=== PATIENT | female | born 1950 | race Caucasian/White ===

== ENCOUNTER → 2018-09-29 | Outpatient (CLI) | payer OTHER ==
[~2018-09-29] MED LIST: ALBU3IS INH; ALBU90OI6 INH; ALPR1 PO; AMLO10 PO; AMOCLA875 PO; ASPI81CH PO; B-12250 MCG PO; DIVA125 PO; FISH1000 PO; FLUT44OIA INH; FURO20 PO; HYDACE10B PO; Hair, Skin & N1 EACH PO; IBUP800 PO; LOSA25 PO; Lasix20 MG PO; Lasix40 MG PO; OMEP20ER PO; Omeprazole20 M1 PO; POTA8 PO; Prednisone20 MG PO; TRAZ100 PO
== END ==
LOC: LAB SHORT 13:23 → LAB 13:23
DX: L97.309 Non-pressure chronic ulcer of unspecified ankle with unspecified severity (principal)
CPT/HCPCS: 87070; 87077; 87147; 87186; 87205

== ENCOUNTER 2018-10-06 11:38 | Day surgery (SDC) | payer OTHER | END 2018-10-06 22:50 | disposition home or self-care (01) | LOC: WOUND 11:38 | DX: E11.622 Type 2 diabetes mellitus with other skin ulcer (principal); L97.319 Non-pressure chronic ulcer of right ankle with unspecified severity; L97.329 Non-pressure chronic ulcer of left ankle with unspecified severity; E11.51 Type 2 diabetes mellitus with diabetic peripheral angiopathy without gangrene; F17.210 Nicotine dependence, cigarettes, uncomplicated; J44.9 Chronic obstructive pulmonary disease, unspecified; Z99.81 Dependence on supplemental oxygen; Z88.1 Allergy status to other antibiotic agents; Z88.8 Allergy status to other drugs, medicaments and biological substances | CPT/HCPCS: G0463 ==

== ENCOUNTER 2018-10-14 09:15 | Day surgery (SDC) | payer OTHER | END 2018-10-14 22:49 | disposition home or self-care (01) | LOC: WOUND 09:15 | DX: E11.622 Type 2 diabetes mellitus with other skin ulcer (principal); L97.812 Non-pressure chronic ulcer of other part of right lower leg with fat layer exposed; L97.822 Non-pressure chronic ulcer of other part of left lower leg with fat layer exposed; L97.319 Non-pressure chronic ulcer of right ankle with unspecified severity; L97.329 Non-pressure chronic ulcer of left ankle with unspecified severity; E11.51 Type 2 diabetes mellitus with diabetic peripheral angiopathy without gangrene; J44.9 Chronic obstructive pulmonary disease, unspecified; I89.0 Lymphedema, not elsewhere classified; I11.0 Hypertensive heart disease with heart failure; I50.9 Heart failure, unspecified; I25.2 Old myocardial infarction; E11.40 Type 2 diabetes mellitus with diabetic neuropathy, unspecified; Z72.0 Tobacco use ==

== ENCOUNTER 2018-10-21 08:50 | Day surgery (SDC) | payer OTHER | END 2018-10-21 23:01 | disposition home or self-care (01) | LOC: WOUND 08:50 | DX: E11.622 Type 2 diabetes mellitus with other skin ulcer (principal); L97.812 Non-pressure chronic ulcer of other part of right lower leg with fat layer exposed; L97.822 Non-pressure chronic ulcer of other part of left lower leg with fat layer exposed; L97.319 Non-pressure chronic ulcer of right ankle with unspecified severity; L97.329 Non-pressure chronic ulcer of left ankle with unspecified severity; E11.51 Type 2 diabetes mellitus with diabetic peripheral angiopathy without gangrene; I11.0 Hypertensive heart disease with heart failure; I50.9 Heart failure, unspecified; I25.2 Old myocardial infarction; J44.9 Chronic obstructive pulmonary disease, unspecified; D64.9 Anemia, unspecified; F17.200 Nicotine dependence, unspecified, uncomplicated; Z99.81 Dependence on supplemental oxygen ==

== ENCOUNTER 2018-10-28 00:24 | Day surgery (SDC) | payer OTHER | END 2018-10-28 22:46 | disposition home or self-care (01) | LOC: WOUND 00:24 | DX: E11.622 Type 2 diabetes mellitus with other skin ulcer (principal); L97.811 Non-pressure chronic ulcer of other part of right lower leg limited to breakdown of skin; L97.821 Non-pressure chronic ulcer of other part of left lower leg limited to breakdown of skin; E11.51 Type 2 diabetes mellitus with diabetic peripheral angiopathy without gangrene; E11.40 Type 2 diabetes mellitus with diabetic neuropathy, unspecified; J44.9 Chronic obstructive pulmonary disease, unspecified; I50.9 Heart failure, unspecified; I25.2 Old myocardial infarction; D64.9 Anemia, unspecified; Z72.0 Tobacco use ==

== ENCOUNTER 2018-11-04 08:58 | Day surgery (SDC) | payer OTHER | END 2018-11-04 22:56 | disposition home or self-care (01) | LOC: WOUND 08:58 | DX: E11.622 Type 2 diabetes mellitus with other skin ulcer (principal); L97.812 Non-pressure chronic ulcer of other part of right lower leg with fat layer exposed; L97.822 Non-pressure chronic ulcer of other part of left lower leg with fat layer exposed; L97.319 Non-pressure chronic ulcer of right ankle with unspecified severity; L97.329 Non-pressure chronic ulcer of left ankle with unspecified severity; E11.51 Type 2 diabetes mellitus with diabetic peripheral angiopathy without gangrene; I73.9 Peripheral vascular disease, unspecified; E11.40 Type 2 diabetes mellitus with diabetic neuropathy, unspecified; I11.0 Hypertensive heart disease with heart failure; I50.9 Heart failure, unspecified; I25.2 Old myocardial infarction; J44.9 Chronic obstructive pulmonary disease, unspecified; D64.9 Anemia, unspecified; F17.200 Nicotine dependence, unspecified, uncomplicated; Z99.81 Dependence on supplemental oxygen | CPT/HCPCS: G0463 ==

== ENCOUNTER 2018-11-11 09:15 | Day surgery (SDC) | payer OTHER | END 2018-11-11 23:09 | disposition home or self-care (01) | LOC: WOUND 09:15 | DX: E11.622 Type 2 diabetes mellitus with other skin ulcer (principal); L97.811 Non-pressure chronic ulcer of other part of right lower leg limited to breakdown of skin; L97.822 Non-pressure chronic ulcer of other part of left lower leg with fat layer exposed; L97.319 Non-pressure chronic ulcer of right ankle with unspecified severity; L97.329 Non-pressure chronic ulcer of left ankle with unspecified severity; E11.51 Type 2 diabetes mellitus with diabetic peripheral angiopathy without gangrene; I73.9 Peripheral vascular disease, unspecified; E11.40 Type 2 diabetes mellitus with diabetic neuropathy, unspecified; I11.0 Hypertensive heart disease with heart failure; I50.9 Heart failure, unspecified; J44.9 Chronic obstructive pulmonary disease, unspecified; F17.200 Nicotine dependence, unspecified, uncomplicated; Z99.81 Dependence on supplemental oxygen ==

== ENCOUNTER 2018-11-18 00:18 | Day surgery (SDC) | payer OTHER | END 2018-11-18 23:00 | disposition home or self-care (01) | LOC: WOUND 00:18 | DX: E11.622 Type 2 diabetes mellitus with other skin ulcer (principal); L97.812 Non-pressure chronic ulcer of other part of right lower leg with fat layer exposed; L97.822 Non-pressure chronic ulcer of other part of left lower leg with fat layer exposed; E11.51 Type 2 diabetes mellitus with diabetic peripheral angiopathy without gangrene; I73.9 Peripheral vascular disease, unspecified; E11.40 Type 2 diabetes mellitus with diabetic neuropathy, unspecified; I11.0 Hypertensive heart disease with heart failure; I50.9 Heart failure, unspecified; I25.2 Old myocardial infarction; J44.9 Chronic obstructive pulmonary disease, unspecified; D64.9 Anemia, unspecified; F17.200 Nicotine dependence, unspecified, uncomplicated; Z99.81 Dependence on supplemental oxygen | CPT/HCPCS: G0463 ==

== ENCOUNTER 2018-11-25 08:40 | Day surgery (SDC) | payer OTHER | END 2018-11-25 23:25 | disposition home or self-care (01) | LOC: WOUND 08:40 | DX: E11.622 Type 2 diabetes mellitus with other skin ulcer (principal); L97.812 Non-pressure chronic ulcer of other part of right lower leg with fat layer exposed; L97.822 Non-pressure chronic ulcer of other part of left lower leg with fat layer exposed; L97.329 Non-pressure chronic ulcer of left ankle with unspecified severity; L97.319 Non-pressure chronic ulcer of right ankle with unspecified severity; E11.51 Type 2 diabetes mellitus with diabetic peripheral angiopathy without gangrene; I73.9 Peripheral vascular disease, unspecified; E11.40 Type 2 diabetes mellitus with diabetic neuropathy, unspecified; I11.0 Hypertensive heart disease with heart failure; I50.9 Heart failure, unspecified; I25.2 Old myocardial infarction; J44.9 Chronic obstructive pulmonary disease, unspecified; D64.9 Anemia, unspecified; F17.200 Nicotine dependence, unspecified, uncomplicated; Z99.81 Dependence on supplemental oxygen | CPT/HCPCS: G0463 ==

== ENCOUNTER 2018-12-02 09:15 | Day surgery (SDC) | payer OTHER | END 2018-12-02 22:48 | disposition home or self-care (01) | LOC: WOUND 09:15 | DX: E11.622 Type 2 diabetes mellitus with other skin ulcer (principal); L97.822 Non-pressure chronic ulcer of other part of left lower leg with fat layer exposed; L97.812 Non-pressure chronic ulcer of other part of right lower leg with fat layer exposed; E11.51 Type 2 diabetes mellitus with diabetic peripheral angiopathy without gangrene; I73.9 Peripheral vascular disease, unspecified; I87.2 Venous insufficiency (chronic) (peripheral); I10 Essential (primary) hypertension; J44.9 Chronic obstructive pulmonary disease, unspecified; F17.200 Nicotine dependence, unspecified, uncomplicated; Z99.81 Dependence on supplemental oxygen | CPT/HCPCS: G0463 ==

== ENCOUNTER 2018-12-09 08:43 | Day surgery (SDC) | payer OTHER | END 2018-12-09 23:09 | disposition home or self-care (01) | LOC: WOUND 08:43 | DX: E11.622 Type 2 diabetes mellitus with other skin ulcer (principal); L97.822 Non-pressure chronic ulcer of other part of left lower leg with fat layer exposed; L97.819 Non-pressure chronic ulcer of other part of right lower leg with unspecified severity; L97.319 Non-pressure chronic ulcer of right ankle with unspecified severity; L97.329 Non-pressure chronic ulcer of left ankle with unspecified severity; E11.51 Type 2 diabetes mellitus with diabetic peripheral angiopathy without gangrene; I73.9 Peripheral vascular disease, unspecified; I87.2 Venous insufficiency (chronic) (peripheral); E11.40 Type 2 diabetes mellitus with diabetic neuropathy, unspecified; I11.0 Hypertensive heart disease with heart failure; I50.9 Heart failure, unspecified; J44.9 Chronic obstructive pulmonary disease, unspecified; I25.2 Old myocardial infarction; D64.9 Anemia, unspecified; F17.200 Nicotine dependence, unspecified, uncomplicated; Z99.81 Dependence on supplemental oxygen | CPT/HCPCS: G0463 ==

== ENCOUNTER 2018-12-16 08:43 | Day surgery (SDC) | payer OTHER | END 2018-12-16 23:42 | disposition home or self-care (01) | LOC: WOUND 08:43 | DX: E11.622 Type 2 diabetes mellitus with other skin ulcer (principal); L97.322 Non-pressure chronic ulcer of left ankle with fat layer exposed; L97.319 Non-pressure chronic ulcer of right ankle with unspecified severity; E11.51 Type 2 diabetes mellitus with diabetic peripheral angiopathy without gangrene; I73.9 Peripheral vascular disease, unspecified; E11.40 Type 2 diabetes mellitus with diabetic neuropathy, unspecified; I11.0 Hypertensive heart disease with heart failure; I50.9 Heart failure, unspecified; I25.2 Old myocardial infarction; J44.9 Chronic obstructive pulmonary disease, unspecified; F17.200 Nicotine dependence, unspecified, uncomplicated | CPT/HCPCS: G0463 ==

== ENCOUNTER 2018-12-30 07:29 | Day surgery (SDC) | payer OTHER | END 2018-12-30 23:09 | disposition home or self-care (01) | LOC: WOUND 07:29 | DX: E11.622 Type 2 diabetes mellitus with other skin ulcer (principal); E11.51 Type 2 diabetes mellitus with diabetic peripheral angiopathy without gangrene; E11.40 Type 2 diabetes mellitus with diabetic neuropathy, unspecified; L97.319 Non-pressure chronic ulcer of right ankle with unspecified severity; L97.329 Non-pressure chronic ulcer of left ankle with unspecified severity; I73.9 Peripheral vascular disease, unspecified; I87.2 Venous insufficiency (chronic) (peripheral); D64.9 Anemia, unspecified; J44.9 Chronic obstructive pulmonary disease, unspecified; M32.9 Systemic lupus erythematosus, unspecified; F41.9 Anxiety disorder, unspecified; I25.2 Old myocardial infarction; I11.0 Hypertensive heart disease with heart failure; I50.9 Heart failure, unspecified; F17.200 Nicotine dependence, unspecified, uncomplicated | CPT/HCPCS: G0463 ==

== ENCOUNTER 2019-01-06 00:14 | Day surgery (SDC) | payer OTHER | END 2019-01-06 22:47 | disposition home or self-care (01) | LOC: WOUND 00:14 | DX: L97.319 Non-pressure chronic ulcer of right ankle with unspecified severity (principal); L97.329 Non-pressure chronic ulcer of left ankle with unspecified severity; I73.9 Peripheral vascular disease, unspecified; I87.2 Venous insufficiency (chronic) (peripheral); Z72.0 Tobacco use | CPT/HCPCS: G0463 ==

== ENCOUNTER 2019-01-13 00:14 | Day surgery (SDC) | payer OTHER | END 2019-01-13 22:59 | disposition home or self-care (01) | LOC: WOUND 00:14 | DX: E11.622 Type 2 diabetes mellitus with other skin ulcer (principal); L97.821 Non-pressure chronic ulcer of other part of left lower leg limited to breakdown of skin; L97.319 Non-pressure chronic ulcer of right ankle with unspecified severity; L97.329 Non-pressure chronic ulcer of left ankle with unspecified severity; E11.51 Type 2 diabetes mellitus with diabetic peripheral angiopathy without gangrene; I73.9 Peripheral vascular disease, unspecified; I87.2 Venous insufficiency (chronic) (peripheral); I10 Essential (primary) hypertension; J44.9 Chronic obstructive pulmonary disease, unspecified; Z72.0 Tobacco use; Z99.81 Dependence on supplemental oxygen ==

== ENCOUNTER 2020-11-23 10:12 | Emergency (ER) | payer OTHER ==
[~2020-11-23] VITALS: Ht 160 cm; Wt 68.0 kg
[2020-11-23] MEDS ORDERED: Mupirocin22 GM TOP (10:21)
== END 2020-11-23 11:15 | disposition home or self-care (01) ==
LOC: ER 10:12
DX: J44.9 Chronic obstructive pulmonary disease, unspecified (principal); I10 Essential (primary) hypertension; L03.116 Cellulitis of left lower limb; L03.115 Cellulitis of right lower limb; Z79.82 Long term (current) use of aspirin; Z79.899 Other long term (current) drug therapy; Z87.891 Personal history of nicotine dependence; Z88.5 Allergy status to narcotic agent; Z88.1 Allergy status to other antibiotic agents; Z88.8 Allergy status to other drugs, medicaments and biological substances
CPT/HCPCS: 99283

== ENCOUNTER 2020-11-29 11:46 | Inpatient (IN) | payer OTHER ==
[~2020-11-29] VITALS: Ht 162.6 cm; Wt 65.8 kg
[~2020-11-29 11:46] MED LIST changes: +Mupirocin22 GM TOP
[2020-11-29] MEDS ORDERED: POTA10T PO (12:11)
[2020-11-29] MEDS ORDERED: HYDR1TAB94 PO (12:12)
[2020-11-29] MEDS ORDERED: FURO20 PO (12:12)
[2020-11-29] MEDS ORDERED: OMEP20ER PO (12:12)
[2020-11-29] MEDS ORDERED: Aspir 8181 MG PO (12:13)
[2020-11-29 12:23] LABS: BASOPHILS ABSOLUTE AUTO 0.06 K/mm3 (0.00-0.23); BASOPHILS PERCENT AUTO 0 % (0-2); EOSINOPHILS ABSOLUTE AUTO 0.01 K/mm3 (0.00-0.68); EOSINOPHILS PERCENT AUTO 0 % (0-6); Hematocrit 42.7 % (33.0-51.0); Hemoglobin 12.7 g/dL (11.5-16.0); IMMATURE GRAN ABSOLUTE AUTO 0.31 K/mm3 (0.00-0.10); IMMATURE GRAN PERCENT AUTO 2 % (0-1); LYMPHOCYTES ABSOLUTE AUTO 1.39 K/mm3 (0.84-5.20); LYMPHOCYTES PERCENT AUTO 8 % (21-46); MONOCYTES ABSOLUTE AUTO 1.16 K/mm3 (0.16-1.47); MONOCYTES PERCENT AUTO 7 % (4-13); Mean Corpuscular HGB 27.7 pg (26.0-34.0); Mean Corpuscular HGB Conc 29.7 g/dL (31.5-36.5); Mean Corpuscular Volume 93 fL (80-100); Mean Platelet Volume 10.5 fL (9.1-12.4); NEUTROPHILS ABSOLUTE AUTO 13.62 K/mm3 (1.96-9.15); NEUTROPHILS PERCENT AUTO 82 % (41-73); NRBC ABSOLUTE 0.07 K/mm3 (0.00-0.02); NRBC Auto 0.4 /100 WBC (0.0-0.2); Platelet Count 355 K/mm3 (150-400); RDW Coefficient Variation 13.7 % (11.7-14.2); RDW Standard Deviation 46.5 fL (35.1-46.3); Red Blood Cell Count 4.58 M/mm3 (3.80-5.20); White Blood Cell Count 16.55 K/mm3 (4.00-11.30)
[2020-11-29 12:30] LABS: Calcium, Ionized (POC) 1.05 mmol/L (1.10-1.46); Chloride (POC) 87 mmol/L (98-108); Creatinine (POC) 1.7 mg/dL (0.6-1.0); Glucose (ISTAT POC) 104 mg/dL (70-99); Hemoglobin (POC) 15.3 g/dL (12.0-16.0); Potassium (POC) 4.3 mmol/L (3.5-5.5); Sodium (POC) 136 mmol/L (135-148); Total CO2 (POC) 46 mmol/L (21-32)
[2020-11-29 12:56] LABS: Albumin, Blood 2.5 g/dL (3.4-5.0); Albumin/Globulin Ratio 0.5 (0.8-1.8); Bilirubin, Total 0.4 mg/dL (0.1-1.0); Bun/Creatinine Ratio 45.7 (12.0-20.0); Calcium, Blood 8.5 mg/dL (8.5-10.1); Creatinine, Blood 1.29 mg/dL (0.40-1.00); Globulin, Blood 5.3 g/dL (2.2-4.0); Magnesium, Blood 1.7 mg/dL (1.6-2.4); Potassium, Blood 4.3 mmol/L (3.5-5.5); Total Protein, Blood 7.8 g/dL (6.4-8.2)
[2020-11-29 13:03] LABS: Troponin I 2.4 ng/mL (0.000-0.040)
[2020-11-29 14:13] LABS: PCO2 Arterial 102 mmHg (35-45); PO2 Arterial 83.4 mmHg (80-100); pH Blood Arterial 7.25 (7.35-7.45)
[2020-11-29 14:22] LABS: International Normalized Ratio 1.15; Prothrombin Time Results 12.3 Sec (9.7-11.5)
[2020-11-29 14:40] LABS: Creatine Kinase MB 6.2 ng/mL (0.0-3.6); Creatine Kinase MB Index 2.2 (0.0-4.0)
--- NOTE | 2020-11-29 19:00 | NUR ---
[facility] DOWNTIME-SEE PAPER CHARTING
[2020-11-29 19:20] LABS: SARS-Cov-2 (COVID-19) PCR, MMC NEGATIVE (NEGATIVE)
[2020-11-29 19:32] LABS: PCO2 Arterial 87.4 mmHg (35-45); pH Blood Arterial 7.32 (7.35-7.45)
[2020-11-29 19:42] LABS: Source, Urine Clean Catch
[2020-11-29 19:45] LABS: BASOPHILS ABSOLUTE AUTO 0.03 K/mm3 (0.00-0.23); BASOPHILS PERCENT AUTO 0 % (0-2); EOSINOPHILS PERCENT AUTO 0 % (0-6); Hematocrit 38.9 % (33.0-51.0); Hemoglobin 11.8 g/dL (11.5-16.0); IMMATURE GRAN ABSOLUTE AUTO 0.24 K/mm3 (0.00-0.10); IMMATURE GRAN PERCENT AUTO 2 % (0-1); LYMPHOCYTES ABSOLUTE AUTO 0.53 K/mm3 (0.84-5.20); LYMPHOCYTES PERCENT AUTO 4 % (21-46); MONOCYTES ABSOLUTE AUTO 0.15 K/mm3 (0.16-1.47); MONOCYTES PERCENT AUTO 1 % (4-13); Mean Corpuscular HGB Conc 30.3 g/dL (31.5-36.5); Mean Corpuscular Volume 92 fL (80-100); Mean Platelet Volume 10.2 fL (9.1-12.4); NEUTROPHILS PERCENT AUTO 93 % (41-73); NRBC ABSOLUTE 0.04 K/mm3 (0.00-0.02); NRBC Auto 0.3 /100 WBC (0.0-0.2); Platelet Count 317 K/mm3 (150-400); RDW Coefficient Variation 13.5 % (11.7-14.2); RDW Standard Deviation 45.6 fL (35.1-46.3); Red Blood Cell Count 4.22 M/mm3 (3.80-5.20); White Blood Cell Count 13.75 K/mm3 (4.00-11.30)
[2020-11-29 20:04] LABS: Albumin, Blood 2.3 g/dL (3.4-5.0); Albumin/Globulin Ratio 0.5 (0.8-1.8); Bilirubin, Total 0.3 mg/dL (0.1-1.0); Bun/Creatinine Ratio 47.2 (12.0-20.0); Calcium, Blood 8.3 mg/dL (8.5-10.1); Creatinine, Blood 1.08 mg/dL (0.40-1.00); Globulin, Blood 4.6 g/dL (2.2-4.0); Magnesium, Blood 2.2 mg/dL (1.6-2.4); Potassium, Blood 3.5 mmol/L (3.5-5.5); Total Protein, Blood 6.9 g/dL (6.4-8.2)
[2020-11-29 20:23] LABS: Appearance, Urine Clear (Clear); Bilirubin, Urine Neg (Neg); Blood, Urine Neg (Neg); Color, Urine Yellow (P-Yellow); Glucose Qualitative, Urine Neg (Neg); Ketones, Urine Neg (Neg); Leukocyte Esterase, Urine 1+ (Neg); Nitrite, Urine Neg (Neg); Protein, Urine Neg (Neg); Urobilinogen, Urine NORM (Normal)
[2020-11-29 20:25] LABS: Bacteria Few /hpf; Red Blood Cells, Urine Not Seen /hpf (0-2); Squamous Epithelial Cells Rare /hpf (Few)
--- NOTE | 2020-11-29 21:15 | NUR ---
CARDIOLOGY NOTIFIED AT THIS TIME OF PT'S INCREASE IN VTACH & ECTOPIC EPISODES. LIDOCAINE 60 MG IV BOLUS TO BE GIVEN NOW FOLLOWED BY 1 MG LIDOCAINE GTT WITH A 1-4 MG TITRATE. ORDERS DISCUSSED WITH SCREW CUTTER, LIDOCAINE GTT VERIFIED AT THE BEDSIDE WITH 2 RN VERIFICATION.
--- NOTE | 2020-11-29 22:30 | NUR ---
AT THE BEDSIDE TO ASSESS PT. SHE IS UNABLE TO ANSWER HIS QUESTIONS, CODE STATUS QUESTIONED. PREVIOUS PHONE ATTEMPTS HAD BEEN MADE TO FAMILY WITH NO SUCCESS, PT'S SISTER DID HOWEVER CALL WHILE HE WAS IN THE ROOM, PT'S FAMILY WAS UPDATED ON HER CONDIION. FAMILY WILL DISCUSS CODE STATUS.
--- NOTE | 2020-11-29 23:00 | NUR ---
PT WOKE UP WHILE ATTEMPTING TO START AN IV. SHE WAS A&O X4. PT WAS ASKED ABOUT HER CODE STATUS WHAT HER WISHES WERE. THE PT STATED THAT SHE HAD AN ADVANCED DIRECTIVE ON FILE WITH HOSPITAL BUT IT HAD BEEN A FEW YEARS SINCE DOING THE PAPERWORK, SHE ALSO STATED SHE WANTS TO REMAIN A FULL CODE BECAUSE SHE HAS A LOT OF PEOPLE THAT DEPEND ON HER, SHE HAS A DISABLED DAUGHTER THAT LIVES WITH HER. SHE WAS ASKE ABOUT GOING TO THE FRONT OFFICE AGENT FOR INTERVENTION, SHE WAS UNSURE, SHE STATED SHE HAD ALMOST MADE HER DAUGHTER WEST [place] THE PAST BUT NEVER COMPLETED THE PROCESS. SHE FEELS HER SISTER SAUL & HER FIANCE ANUP ARE TRYING TO TAKE HER VAN AWAY OR GAIN HER POSESSIONS'. THE PT'S DAUGHTER (WEST) & ADILIA STATED THAT THE PT HAD RECENTLY HAD A MAN FROM [place] LIVING WITH HER THAT SUPPOSED TO HELPING WITH CARE WHEN HOME HEALTH WAS NOT AROUND. HE HAS SINCE BEEN REMOVED FROM THE HOME. PT STATED THAT SHE WANTS HER DAUGHTER WEST TO BE IN CHARGE OF HER MEDICAL DECISIONS IF SHE SHOULD DECLINE. HER SISTER STATED THAT THE
--- NOTE | 2020-11-30 | NUR ---
ORAL CARE PROVIDED WHILE PT WAS AWAKE AND ALERT, SHE TOLERATED BEING OFF THE BIPAP FOR APPROX 3-4 MINUTES. SHE WAS ABLE TO USE THE MOUTH SWABS TO BRUSHE HER TEETH, RINSE & SPIT. SPO2 DECREASED TO 88%, BIPAP WAS PLACED BACK ON THE PT. SHE STATED UNDERSTANDING FOR NPO STATUS. CALL LIGHT AND ROOM ORIENTATION PROVIDED AT THIS TIME.
[2020-11-30 03:28] LABS: BASOPHILS ABSOLUTE AUTO 0.01 K/mm3 (0.00-0.23); BASOPHILS PERCENT AUTO 0 % (0-2); EOSINOPHILS PERCENT AUTO 0 % (0-6); Hematocrit 37.2 % (33.0-51.0); Hemoglobin 11.5 g/dL (11.5-16.0); IMMATURE GRAN ABSOLUTE AUTO 0.12 K/mm3 (0.00-0.10); IMMATURE GRAN PERCENT AUTO 1 % (0-1); LYMPHOCYTES ABSOLUTE AUTO 0.41 K/mm3 (0.84-5.20); LYMPHOCYTES PERCENT AUTO 5 % (21-46); MONOCYTES ABSOLUTE AUTO 0.07 K/mm3 (0.16-1.47); MONOCYTES PERCENT AUTO 1 % (4-13); Mean Corpuscular HGB 28.6 pg (26.0-34.0); Mean Corpuscular HGB Conc 30.9 g/dL (31.5-36.5); Mean Corpuscular Volume 93 fL (80-100); Mean Platelet Volume 10.5 fL (9.1-12.4); NEUTROPHILS ABSOLUTE AUTO 7.89 K/mm3 (1.96-9.15); NEUTROPHILS PERCENT AUTO 93 % (41-73); NRBC ABSOLUTE 0.04 K/mm3 (0.00-0.02); NRBC Auto 0.5 /100 WBC (0.0-0.2); Platelet Count 306 K/mm3 (150-400); RDW Coefficient Variation 13.4 % (11.7-14.2); RDW Standard Deviation 45.5 fL (35.1-46.3); Red Blood Cell Count 4.02 M/mm3 (3.80-5.20)
--- NOTE | 2020-11-30 04:07 | NUR ---
PT IS AWAKE, ALERT & ORIENTED X3. SHE WAS ABLE TO ASSIST WITH HER OWN ORAL CARE. RADIOLOGY IN FOR CHEST XRAY AT THIS TIME. PT STATES "I HAVE NOT HAD ANYTHING TO EAT IN A LONG TIME". PT WAS EDUCATED ON NPO STATUS. CALL LIGHT IN REACH
[2020-11-30 04:19] LABS: Albumin, Blood 2.4 g/dL (3.4-5.0); Albumin/Globulin Ratio 0.5 (0.8-1.8); Bilirubin, Total 0.4 mg/dL (0.1-1.0); Bun/Creatinine Ratio 48.4 (12.0-20.0); Calcium, Blood 8.2 mg/dL (8.5-10.1); Creatinine, Blood 0.97 mg/dL (0.40-1.00); Globulin, Blood 4.7 g/dL (2.2-4.0); Magnesium, Blood 2.1 mg/dL (1.6-2.4); Potassium, Blood 3.6 mmol/L (3.5-5.5); Total Protein, Blood 7.1 g/dL (6.4-8.2)
[2020-11-30 04:38] LABS: Troponin I 1.09 ng/mL (0.000-0.040)
--- NOTE | 2020-11-30 06:09 | NUR ---
SUMMARY PT HAS WOKE UP A FEW TIMES THROUGH THE NIGHT. SHE IS ORIENTED X3. SHE WAS ABLE TO VERBALIZE NEEDS, ASSIST WITH ORAL CARE, AND REMEMBER MY NAME. PT WAS PLACED ON 10 L O2 VIA NC DURING ORAL CARE, SPO2 REMAINED >94%, UNLABORED. PT WAS ASKING FOR FOOD & WATER, SHE WAS EDUCATED ABOUT HER REASON FOR ADMISSION & NPO STATUS. LIDOCAINE GTT INFUSING @ 1 MG/MIN, HEPARIN GTT INFUSING @ 15 U/KG/HR. BIPAP 14/6, 10% FIO2, RATE-16. Q2 TURNS PROVIDED, CALL LIGHT IN REACH, WCTM & REPORT TO DAY RN.
--- NOTE | 2020-11-30 08:30 | NUR ---
ASSESSMENT- PT AWAKE, ALERT, COOPERATIVE. C/O BACK SORENESS, LEG STIFFNESS, DENIES ANY CP OR SOB. REPOSITIONED WITH IMPROVEMENT. CONFUSED REGARDING DATE, PLACE. EXPLAINED PLAN OF CARE. ABLE TO ANSWER SOME QUESTIONS. PHYSICIANS HERE-UPDATED. LUNGS WITH CRACKLES BIBASILAR. ON BIPAP-CHANGED TO CANNULA WITH STABLE SATURATIONS, DENIES SOB, RESPIRATIONS UNLABORED. REQUESTING FOOD-DR. GARCIA HERE-UPDATED. ABLE TO TAKE JUICE, APPLESAUCE WITHOUT PROBLEMS. NO N/V. NO CHEST PAIN. UO GOOD VIA SAMANO. SKIN POOR CONDITION, REDDENED PERIAREA. THICKENED ALLIGATOR SKIN BILATERAL SHINS WITH SORES. PEDAL PULSES PRESENT. ABLE TO USE CALL LIGHT.
--- NOTE | 2020-11-30 09:49 | NUR ---
DR. GOMEZ HERE-UDPATED. SPOKE WITH PT REGARDING POSSIBLE HEART CATH TODAY. PT STATES HAS TO THINK ABOUT IT, DOES NOT WANT IT TODAY. EXPLAINED PLAN OF CARE, STATES WILL ALSO TALK WITH HER SISTER
--- NOTE | 2020-11-30 10:45 | NUR ---
PT EATING BREAKFAST. C/O LOWER BACK PAIN, REFUSED TYLENOL, STATES TAKES NORCO AT HOME,UPDATE TO PHYSICIAN AND NORCO GIVEN. VSS. STILL STATES WANTS TO WAIT TO THINK ABOUT HEART PROCEDURE
--- NOTE | 2020-11-30 15:26 | NUR ---
DISCUSSED ANGIOGRAM WITH PT, STATES DOES NOT WANT TO HAVE DONE RIGHT NOW. ALERT, ORIENTED, COOPERATIVE, QUESTIONS ANSWERED. HUNGRY-APPETITE GOOD. SINUS WITH FEW PACS, LIDOCAIN D/C, PO ANTIARRHYTHMIC GIVEN.
--- NOTE | 2020-11-30 18:14 | NUR ---
Spiritual care note: Mrs. Toure was pleasant and open to prayer. She appears quite frail and admits she is needing help managing her affairs. For example, she is worried about eviction because she has not been able to make it to the bank in 2 months and has not paid her rent. She has a sister and a daughter, "But I don't trust them." She may benefit from some help managing portions of her life. Regardless, she is hopeful for recovery and appreciaitve of spiritual support. I will remain avaialble.
--- NOTE | 2020-11-30 18:24 | NUR ---
PT STATES DOES NOT WANT CARDIAC CATH NOW. HAD TALKED WITH NAVIGATION OFFICER AND WITH SISTER. NOTIFIED DR. EVERETT-PLAVIX ORDERS TAKEN. PT C/O LOWER BACK PAIN AND GENERALIZED ACHES-RX GIVEN PER REQUEST. WAS SITTING UP EATING DINNER-CHOKING EPISODE, CLEARED QUICKLY BUT DID HAVE SMALL AMOUNT EMESIS. LUNGS CLEAR, NO CHANGE IN SATURATIONS. WILL MONITOR. GOOD APPETITE. HEPARIN GTT INFUSING. UO GOOD VIA SAMANO. DRSGS TO BILATERAL SHINS.
--- NOTE | 2020-11-30 18:59 | NUR ---
VISITING WITH SISTER AT BEDSIDE. STATES PAIN DECREASED TO TOLERABLE LEVEL 4. NO S/S ASPIRATION
--- NOTE | 2020-11-30 19:45 | NUR ---
PT SITTING UP IN BED IN HIGH SEMI FOWLERS POSITION. PT DECLINES REPOSITIONING, SHE REPORTS SHE WOULD LIKE TO WATCH TV. CALL LIGHT WITHIN REACH. PT DRINKING COFFEE WITHOUT COMPLICATIONS, AND PT IS REQUESTING ICE CREAM. PT DENIES ANY COMPLAINTS OF HEADACHE, CHEST PAIN, SOB, NAUSEA, OR NUMBNESS AND TINGLING. PT DENIES ANY PAIN, BUT REPORTS SHE DOES EXPERIENCE PAIN IN HER BACK THAT SHE TAKES PAIN MEDICATION FOR. LEGS ELEVATED ON A PILLOW. SAMANO IS DRAINING CLEAR YELLOW URINE. FLUIDS AT BEDSIDE. BED IN LOW POSITION.
--- NOTE | 2020-12-01 01:18 | NUR ---
PLACED PT ON BIPAP 40% - PT UNABLE TO MAINTAIN HER SATS ABOVE 88-89% ON 3.5 L OXYGEN. PT DENIES SOB. LS ARE CLEAR BUT DECREASED THROUGHOUT, NO CHANGE FROM BEGINNING OF SHIFT. CALL LIGHT WITHIN REACH. BED IN LOW POSITION. NOTIFIED FANNY PAT.
--- NOTE | 2020-12-01 02:07 | NUR ---
PT PLACED BACK ON 3.5 L OXYGEN VIA NC - SATS MAINTAINING 92-93%. CALL LIGHT WITHIN REACH. PT TOLERATING PO FLUIDS WITHOUT DIFFICULTY.
--- NOTE | 2020-12-01 05:25 | NUR ---
SHIFT SUMMARY - NO ACUTE CHANGES THROUGHOUT THIS SHIFT. PT PLACED ON BIPAP FOR APPX 15 MINUTES X1 DURING THE NIGHT, FOR LOW OXYGEN SATS 88-89% (SEE PREVIOUS NOTE). PT TOLERATED PO FLUIDS AND SNACKS WITHOUT COMPLICATIONS TONIGHT. PT MEDICATED X1 FOR BACK PAIN WITH GOOD RELIEF. PT HASN'T SLEPT THROUGHOUT MOST OF THE NIGHT - PT FINALLY FELL ASLEEP APPX 20 MINUTES AGO. RESPIRATIONS EVEN AND UNLABORED. PT CURRENTLY ON 3L OXYGEN - SATS WNL. PT HAS BEEN ALERT AND ORIENTED X3 THROUGHOUT THE NIGHT, OCCASIONALLY PT HAS MADE AN ODD STATEMENT THINKING HER R SL IV WAS BLEEDING BUT IT WASN'T. CALL LIGHT WITHIN REACH. FLUIDS AT BEDSIDE. BED IN LOW POSITION.
--- NOTE | 2020-12-01 06:17 | NUR ---
SPOKE TO PT REGARDING REQUEST FOR ASSISTANCE FROM EASEMENT WORKER - VOCERA MESSAGE LEFT WITH SAL ERVIN, IT APPEARS SHE HAS BEEN FOLLOWING HER HERE IN THE HOSPITAL. I WILL ALSO PASS THIS ALONG TO RN, DAY SHIFT ICU.
--- NOTE | 2020-12-01 06:58 | NUR ---
HEPARIN DRIP OFF PER ORDER. PT IS CURRENTLY SLEEPING. CALL LIGHT WITHIN REACH. BED IN LOW POSITION.
[2020-12-01 07:50] LABS: Base Excess Venous 25.8 mmol/L; Bicarbonate Venous 47.7 mmol/L (24.0-30.0); PCO2 Venous 55.9 mmHg (38-42); PO2 Venous 132 mmHg (38-42)
[2020-12-01 07:51] LABS: pH Blood Venous 7.54 (7.34-7.37)
[2020-12-01 08:39] LABS: Blood Urea Nitrogen 32 mg/dL (8-24); Calcium, Blood 7.7 mg/dL (8.5-10.1); Chloride, Blood 88 mmol/L (98-108); Creatinine, Blood 0.84 mg/dL (0.40-1.00); Glomerular Filtration Rate >60 (60-); Glucose, Blood 167 mg/dL (70-99); Potassium, Blood 3.3 mmol/L (3.5-5.5); Sodium, Blood 135 mmol/L (136-145)
[2020-12-01 08:48] LABS: Anion Gap Unable to Calculate mmol/L (6-16)
[2020-12-01 08:53] LABS: CO2, Blood >45 mmol/L (21-32)
--- NOTE | 2020-12-01 16:36 | NUR ---
SHIFT NOTE PT HAD A BRIEF EPISODE OF HYPOTENSION THIS AFTERNOON WHICH WAS BEGAN TO RESOLVE WITHOUT INTERVENTION, 500ML LR BOLUS WAS ADMINISTERED FOR HYPOTENSION AND PRESSURES HAVE REMAINED >95 SINCE BOLUS. PT HAD DENIED ANY PAIN OR DISTRESS DURING THE HYPOTENSIVE MOMENT, AN EKG WAS PERFORMED, TROPONIN WAS OBTAINED, AND CHEMBG WAS PERFORMED. SPEECH THERAPY EVALUATED PT THIS AFTERNOON, DIET WAS CHANGED TO A CARDIAC PUREE DIET, NECTAR THICK LIQUIDS WITHOUT STRAWS. PT HAS REFUSED ANGIO, SHE ALSO REFUSED LOVENOX THIS EVENING. PT IS A/O X3.
--- NOTE | 2020-12-01 18:32 | NUR ---
PT HAS BEEN MADE PCU STATUS. PT REFUSING PO FLUIDS BECUASE SHE DOES NOT CARE FOR THICKENED FLUIDS, PT WAS PROVIDED WITH ENSURE COMPLETE AND V-8 JUICE BUT STS SHE HAS NOT HAD ANY FLUIDS THIS SHIFT. PT ALSO STS THAT SHE DID NOT EAT HER DINNER SHE DID NOT CARE FOR PUREE DIET, BUT PT DID MANAGE TO EAT 75% OF HER PUREE DINNER TRAY. PT DEMANDS TO SPEAK WITH THE DR TO REPORT SPEECH THERAPY FOR PLACING HER ON THICKENED FLUIDS AND PUREE DIET. PT EDUCATED THAT SHE WAS PALCED ON PUREE DIET AND THICKENED FLUIDS SHE WAS CHOKING ON BREAKFAST TRAY, AND HAD GURGLING SPEECH WHEN SPEECH THERAPY CONSULTED WITH HER, PT REFUSED EDUCATION DEMANDS TO SPEAK WITH DR ABOUT HER DIET, DR VAZQUEZ WAS MADE AWARE OF COMPLAINT
--- NOTE | 2020-12-02 06:14 | NUR ---
pt irritated and demanding because of diet order of pureed and thickened liquids. Teaching and reinforcement provided and pt became more aggreeable. frequent snacks provided to pt. complete bed bath given incontinent of stool. good paola care provided. lotion applied to lower extremities. vss. swallowing pills in pudding.
[2020-12-02 07:32] LABS: Alanine Aminotransfer (ALT/SGP 217 U/L (12-78); Albumin, Blood 2.4 g/dL (3.4-5.0); Albumin/Globulin Ratio 0.6 (0.8-1.8); Alk Phos 90 U/L (50-136); Aspartate Aminotrans (AST/SGOT 45 U/L (12-37); Bilirubin, Total 0.2 mg/dL (0.1-1.0); Blood Urea Nitrogen 25 mg/dL (8-24); Bun/Creatinine Ratio 33.9 (12.0-20.0); Calcium, Blood 8.2 mg/dL (8.5-10.1); Chloride, Blood 90 mmol/L (98-108); Creatinine, Blood 0.74 mg/dL (0.40-1.00); Globulin, Blood 4.2 g/dL (2.2-4.0); Glomerular Filtration Rate >60 (60-); Glucose, Blood 199 mg/dL (70-99); Potassium, Blood 4.4 mmol/L (3.5-5.5); Sodium, Blood 134 mmol/L (136-145); Total Protein, Blood 6.6 g/dL (6.4-8.2)
[2020-12-02 07:36] LABS: Anion Gap Unable to Calculate mmol/L (6-16)
[2020-12-02 07:38] LABS: CO2, Blood >45 mmol/L (21-32)
[2020-12-02 08:28] LABS: Base Excess Venous 25.1 mmol/L; Bicarbonate Venous 45.3 mmol/L (24.0-30.0); PCO2 Venous 78.6 mmHg (38-42); PO2 Venous 43.3 mmHg (38-42); pH Blood Venous 7.41 (7.34-7.37)
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
--- NOTE | 2020-12-02 13:26 | NUR ---
1310 PT TRANFER FROM ICU. KARIN RN GAVE REPORT. PT IS ALERT AND ORIENTED. PT WAS ABLE TO TRANSFER WITH 2 ASSIST AND USE OF CANE FROM GURNEY TO BED. PT WAS PLACED IN BED AND COVERED, CALL LIGHT OFFERED. NO DISTRESS REPORTED AT THIS TIME.
--- NOTE | 2020-12-02 18:04 | NUR ---
PT TRANSFERRED FROM ICU. SHE IS ALERT AND ORIENTED, REFUSES TO USE CALL LIGHT WHEN SHE NEEDS TO HAVE BM EVEN AFTER NURSE AND CARTON GLUING MACHINE OPERATOR EDUCATED HER . SHE IS ABLE TO AMBULATE SHORT DISTANCE WITH CANE AND 2 ASSIST. PT CAN BE NONCOMPLIANT WITH MEDS AND CARES. CALL LIGHT WITHIN REACH. NO ACUTE CHANGES.
[2020-12-03 05:49] LABS: Blood Urea Nitrogen 27 mg/dL (8-24); Bun/Creatinine Ratio 40.4 (12.0-20.0); Calcium, Blood 8.3 mg/dL (8.5-10.1); Chloride, Blood 91 mmol/L (98-108); Creatinine, Blood 0.67 mg/dL (0.40-1.00); Glomerular Filtration Rate >60 (60-); Glucose, Blood 88 mg/dL (70-99); Potassium, Blood 4.4 mmol/L (3.5-5.5); Sodium, Blood 136 mmol/L (136-145)
--- NOTE | 2020-12-03 05:49 | NUR ---
SHIFT SUMMARY: AOX2, DOES NOT KNOW DATE, AND WAS HULLUCINATING LAST NIGHT. SHE WAS SEEING PEOPLE IN THE ROOM AND ASKED FOR US TO GET THE CAKE OUT OF THE FRIG ON THE OTHER SIDE OF THE ROOM. SHE HAS BEEN PLEASANT AND FOLLOWING DIRECTIONS. SHE DID REFUSE HER PM MEDS. MEDICATED FOR PAIN X1. CATHETER IS STILL PATENT AND DRAINING. TELE ON. ORDER FOR CBG BUT DOES NOT STATES WHEN. WILL HAVE DAYSHIFT FIND OUT IF MD WANTS THEM. VS DID SHOW VERY LOW BP ON THE LEFT SIDE BUT WHEN TAKEN ON THE RIGHT HER BP IS NORMAL. DENIED ANY SYMPTOMS THE ENTIRE SHIFT. SLEPT WELL T/O THE NIGHT. CALL LIGHT IS IN REACH, BED ALARM IS ON.
[2020-12-03 06:03] LABS: Anion Gap Unable to Calculate mmol/L (6-16)
[2020-12-03 06:04] LABS: CO2, Blood >45 mmol/L (21-32)
[2020-12-03 08:28] LABS: Base Excess Venous 26.1 mmol/L; Bicarbonate Venous 46.6 mmol/L (24.0-30.0); PCO2 Venous 76.6 mmHg (38-42); PO2 Venous 90.5 mmHg (38-42); pH Blood Venous 7.43 (7.34-7.37)
--- NOTE | 2020-12-03 17:12 | NUR ---
SHIFT SUMMARY- PT IS ALERT, PLESANT AND COOPERATIVE. SHE IS EATING AND DRINKING WELL. SHE IS EATING AND DRINKING WELL. BEGAN BLADDER TRAINING TO REMOVE SAMANO. HER DAUGHTER WAS ATBEDSIDE THIS SHIFT. SHE WAS UP TO HER CHAIR THIS SHIFT. RT FOUND A BED BUG IN HER ROOM AND SHE WAS PLACED ON ISO. HER BED IS IN THE LOW POSITION AND CALL LIGHT IS WITHIN REACH.
[2020-12-04 02:17] LABS: Stool Occult Bld Immuno 1 Positive (NEGATIVE)
--- NOTE | 2020-12-04 04:45 | NUR ---
SHIFT SUMMARY ASSUMED CARE OF PT AT 1900. PT IS A/OX2-3. PT WAS VERY LETHARGIC AND REPEATED THE WORD "TEN" WHEN ASKED ANY ORIENTATION QUESTIONS. BLOOD SUGAR CHECKED AND SHOWED 200'S, PT WAS THEN AWOKEN AND GIVEN BED BATH DUE TO PERFUSE SWEATING. AFTER BATH PT SLEPT AGAIN, WHEN SHE BACOME MORE ORIENTED, SHE DID NOT REMEMBER THE BED BATH, OR SLEEPING THROUGH DINNER, OR ANYTHING FROM BEFORE SHE FIRST FELL ALSEEP. HEART SOUNDS REGULAR, TELE SHOWS SINUS. LUNG SOUNDS DIMINISHED. PT WAS BLADDER TRAINED T/O THE NIGHT. URINE CLEAR AND YELLOW. PT HAD CRANBERRY RED STOOLS. SAMPLE SENT AND WAS POSITIVE FOR BLOOD. HOSPITALIST NOTIFIED AND SAID TO CHECK H/H WITH AM LABS, AWAITING RESULTS. PT DRESSING CHANGED ON LEG. PT C/O PAIN IN LEGS, MEDICATED WITH NORCO PER PT REQUEST. CALL LIGHT IN REACH, BED IN LOWEST POSTION.
[2020-12-04 05:44] LABS: BASOPHILS ABSOLUTE AUTO 0.03 K/mm3 (0.00-0.23); BASOPHILS PERCENT AUTO 0 % (0-2); EOSINOPHILS ABSOLUTE AUTO 0.01 K/mm3 (0.00-0.68); EOSINOPHILS PERCENT AUTO 0 % (0-6); Hemoglobin 9.8 g/dL (11.5-16.0); IMMATURE GRAN ABSOLUTE AUTO 0.19 K/mm3 (0.00-0.10); IMMATURE GRAN PERCENT AUTO 2 % (0-1); LYMPHOCYTES ABSOLUTE AUTO 0.96 K/mm3 (0.84-5.20); LYMPHOCYTES PERCENT AUTO 10 % (21-46); MONOCYTES ABSOLUTE AUTO 1.18 K/mm3 (0.16-1.47); MONOCYTES PERCENT AUTO 12 % (4-13); Mean Corpuscular HGB 28.4 pg (26.0-34.0); Mean Corpuscular HGB Conc 29.7 g/dL (31.5-36.5); Mean Corpuscular Volume 96 fL (80-100); Mean Platelet Volume 10.1 fL (9.1-12.4); NEUTROPHILS ABSOLUTE AUTO 7.16 K/mm3 (1.96-9.15); NEUTROPHILS PERCENT AUTO 75 % (41-73); Platelet Count 245 K/mm3 (150-400); RDW Coefficient Variation 13.6 % (11.7-14.2); RDW Standard Deviation 46.7 fL (35.1-46.3); Red Blood Cell Count 3.45 M/mm3 (3.80-5.20); White Blood Cell Count 9.53 K/mm3 (4.00-11.30)
[2020-12-04 06:05] LABS: Blood Urea Nitrogen 28 mg/dL (8-24); Bun/Creatinine Ratio 42.6 (12.0-20.0); Calcium, Blood 7.8 mg/dL (8.5-10.1); Chloride, Blood 92 mmol/L (98-108); Creatinine, Blood 0.66 mg/dL (0.40-1.00); Glomerular Filtration Rate >60 (60-); Glucose, Blood 96 mg/dL (70-99); Potassium, Blood 4.7 mmol/L (3.5-5.5); Sodium, Blood 137 mmol/L (136-145)
[2020-12-04 06:17] LABS: Anion Gap Unable to Calculate mmol/L (6-16); CO2, Blood >45 mmol/L (21-32)
[2020-12-04 14:33] LABS: Hematocrit 27.7 % (33.0-51.0); Hemoglobin 8.5 g/dL (11.5-16.0); Mean Corpuscular HGB Conc 30.7 g/dL (31.5-36.5); Mean Corpuscular Volume 95 fL (80-100); Mean Platelet Volume 10.4 fL (9.1-12.4); Platelet Count 227 K/mm3 (150-400); RDW Coefficient Variation 13.5 % (11.7-14.2); RDW Standard Deviation 46.1 fL (35.1-46.3); Red Blood Cell Count 2.93 M/mm3 (3.80-5.20); White Blood Cell Count 10.53 K/mm3 (4.00-11.30)
--- NOTE | 2020-12-04 18:38 | NUR ---
SHIFT SUMMARY- PT IS ALERT, INTERMITENT CONFUSION, COOPERATIVE AND PLESANT. SHE IS EATING AND DRINKING WELL. SHE HAS BEEN HAVING RADHA BLOOD STOOLS. HER HGB DROPPED THIS SHIFT. GI CONSULT WAS CALLED, WILL SEE HER IN THE MORNING. SHE WORKED WITH PT THIS SHIFT AND TOLERATED WELL. SHE IS ISOLATION FOR BED BUGS. HER BED IS IN THE LOW POSITION AND CALL LIGHT IS WITHIN REACH.
[2020-12-04 21:18] LABS: Hematocrit 28.2 % (33.0-51.0); Hemoglobin 8.6 g/dL (11.5-16.0)
[2020-12-05 05:18] LABS: BASOPHILS ABSOLUTE AUTO 0.03 K/mm3 (0.00-0.23); BASOPHILS PERCENT AUTO 0 % (0-2); EOSINOPHILS ABSOLUTE AUTO 0.19 K/mm3 (0.00-0.68); EOSINOPHILS PERCENT AUTO 2 % (0-6); Hematocrit 26.3 % (33.0-51.0); Hemoglobin 7.9 g/dL (11.5-16.0); IMMATURE GRAN ABSOLUTE AUTO 0.33 K/mm3 (0.00-0.10); IMMATURE GRAN PERCENT AUTO 4 % (0-1); LYMPHOCYTES ABSOLUTE AUTO 1.76 K/mm3 (0.84-5.20); LYMPHOCYTES PERCENT AUTO 20 % (21-46); MONOCYTES ABSOLUTE AUTO 0.94 K/mm3 (0.16-1.47); MONOCYTES PERCENT AUTO 11 % (4-13); Mean Corpuscular HGB 28.4 pg (26.0-34.0); Mean Corpuscular Volume 95 fL (80-100); Mean Platelet Volume 10.3 fL (9.1-12.4); NEUTROPHILS ABSOLUTE AUTO 5.71 K/mm3 (1.96-9.15); NEUTROPHILS PERCENT AUTO 64 % (41-73); Platelet Count 238 K/mm3 (150-400); RDW Coefficient Variation 13.8 % (11.7-14.2); RDW Standard Deviation 46.6 fL (35.1-46.3); Red Blood Cell Count 2.78 M/mm3 (3.80-5.20); White Blood Cell Count 8.96 K/mm3 (4.00-11.30)
--- NOTE | 2020-12-05 05:39 | NUR ---
SUMMARY: PT A/OX4 W/INTERMITTENT CONFUSION AND CALLS APPROPRIATELY TO SPECIFY NEEDS. SHE IS 1PA W/PIVOT T/F TO BSC AND CONT'S TO HAVE RADHA BLOODY STOOLS BUT AMT AND FREQUENCY HAS DECREASED. HGB/HCT DROPPED SLIGHTLY, NOW 7.9/26.3 WAS 8.6/28.2. GI CX PENDING AND SHE IS TO BE ON CLEAR LIQ'S UNTIL AFTER CONSULTATION. SHE REMAINS NSR/S.TACH 80'S-100'S BPM. PT ON 3L O2 PER HOME DOSE AND NO S/S RESP DISTRESSS OBSERVED. NO ACUTE CHANGES, VSS/AFEBRILE. WCTM AND REPORT TO DAY RN.
--- NOTE | 2020-12-05 14:30 | NUR ---
Forgetful, states medications have been dc'd when they have not, currently npo awaiting dr intevention/assessment, refused enema, explained that dr may require it prior to procedure, she states she will wait until he comes in and tells her himself, took other medications, informed dr of pt refusals and disinformation, will continue to monitor and treat until share bsr with pt and noc nurse
--- NOTE | 2020-12-05 14:33 | NUR ---
Attempted to visit earlier and pt is having colonoscopy today. Will attempt to visit tomorrow to review AD.
--- NOTE | 2020-12-05 16:07 | NUR ---
PT TRANSFERED TO [facility] FROM FLOOR. History, Chart, Medications and Allergies reviewed before start of procedure. Lungs clear T/O to Auscultation. Patient confirms NPO status and agrees with scheduled surgery. Pre-Op teaching done. Pt verbalizes understanding.
--- NOTE | 2020-12-05 16:18 | NUR ---
12/05/20 1618 ASHTYN GORE History, Chart, Medications and Allergies reviewed before start of procedure. 3-LEAD EKG REVIEWED WITH PHYSICIAN PRIOR TO START OF PROCEDURE. O2 VIA POM INTACT THROUGHOUT SEDATION/PROCEDURE. MONITOR INTACT WITH CONTINUOUS PULSE OXIMETRY AND INTERMITTENT BP. MAC WITH DR. OLIVER.
--- NOTE | 2020-12-05 18:39 | NUR ---
Called back family but they were no longer at the number left, returned from procedure feeling better and looking forward to eating and going home soon, 3L via nc, saline locked, call light in reach, mmoved back to reg diet but soft/mech, will continue to monitor and treat until share bsr with noc nurse and pt
--- NOTE | 2020-12-06 05:27 | NUR ---
CARE CENTER MANAGER SUMMARY NO ACUTE CHANGES THIS SHIFT. PT AAOX3 AND PLEASANT. ON 3L O2 VIA NC WHICH IS BASELINE RATE. MEDICATED FOR PAIN WITH NORCO AT BEDTIME PER EMAR WITH GOOD PAIN RELIEF. PT IS A STANDBY ASSIST TO CHAIR OR BEDSIDE COMMODE AND DOES FAIRLY WELL WITH TRANSFER. VSS, WILL CONTINUE TO MONITOR.
[2020-12-06 06:13] LABS: Hematocrit 24.4 % (33.0-51.0); Hemoglobin 7.3 g/dL (11.5-16.0)
--- NOTE | 2020-12-06 13:55 | NUR ---
Met pt. sitting in a chair resting she reports to be doing fine encouraged pt and prayed for her.
--- NOTE | 2020-12-06 15:10 | NUR ---
[facility] STAFF VINICIUS NOTIFIED THIS NURSE THAT PT HAD A 13BEAT RUN SVT, PT DENIES CP OR ANY OTHER DISCOMFORT. VSS. NOTIFIED DR. GARCIA VIA PHONE CALL. NO FURTHER ORDERS NOTED. PT IN BED AT THIS TIME, CALM AND COMFORTABLE, WATCHING TV. BED AT LOWEST POSITION. CALL LIGHT WITHIN REACH.
--- NOTE | 2020-12-06 17:46 | NUR ---
SHIFT SUMMARY PT A&OX3, ABLE TO MAKE NEEDS KNOWN, PLEASANT AND COOPERATIVE TO CARE. PT MEDICATED FOR PAIN PER EMAR. PT CONT ON 3LPM O2 VIA NC. NO C/O CP, SOB, OR N&V. PT CALM AND COMFORTABLE IN ROOM T/O SHIFT. PT SBA TO BSC, DENIES DYSURIA. BED AT LOWEST POSITION. CALL LIGHT WITHIN REACH.
--- NOTE | 2020-12-07 03:36 | NUR ---
SHIFT SUMMARY PATIENT HAD DARK BLOODY STOOL X ONE. AXO X 3 AND SBA TO BSC. PIV REMAINS INTACT. PODIATRIC AIDE REPORTS SR 61. CBG 268. REPORTED BACK PAIN X ONE AND NORCO GIVEN PER EMAR AND PATIENT ABLE TO SLEEP. VSS/AFEBRILE. DENIES SOB AND N/V. ON 3L O2 BASELINE. CALL LIGHT IN REACH. BED IN LOWEST POSITION. WILL CONTINUE TO MONITOR UNTIL DAY SHIFT NURSE ASSUMES CARE.
[2020-12-07 07:19] LABS: Hematocrit 22.5 % (33.0-51.0); Hemoglobin 6.8 g/dL (11.5-16.0)
--- NOTE | 2020-12-07 14:41 | NUR ---
[facility] MED STAFF SHARMAINE NOTIFIED THIS NURSE THAT PT REFUSED GI BLOOD LOSS TEST. SPOKE TO PT, PT CONTINUES TO REFUSE TEST, PT VERBALIZED THAT SHE ALREADY HAD TOO MUCH TESTINGS. NOTIFIED DR. MUIR VIA PHONE CALL. NO FURTHER ORDERS NOTED.
[2020-12-07 15:27] LABS: BASOPHILS ABSOLUTE AUTO 0.04 K/mm3 (0.00-0.23); BASOPHILS PERCENT AUTO 0 % (0-2); EOSINOPHILS ABSOLUTE AUTO 0.01 K/mm3 (0.00-0.68); EOSINOPHILS PERCENT AUTO 0 % (0-6); Hematocrit 28.3 % (33.0-51.0); Hemoglobin 8.7 g/dL (11.5-16.0); IMMATURE GRAN ABSOLUTE AUTO 0.48 K/mm3 (0.00-0.10); IMMATURE GRAN PERCENT AUTO 4 % (0-1); LYMPHOCYTES ABSOLUTE AUTO 0.47 K/mm3 (0.84-5.20); LYMPHOCYTES PERCENT AUTO 4 % (21-46); MONOCYTES ABSOLUTE AUTO 0.17 K/mm3 (0.16-1.47); MONOCYTES PERCENT AUTO 2 % (4-13); Mean Corpuscular HGB 28.2 pg (26.0-34.0); Mean Corpuscular HGB Conc 30.7 g/dL (31.5-36.5); Mean Corpuscular Volume 92 fL (80-100); Mean Platelet Volume 9.7 fL (9.1-12.4); NEUTROPHILS ABSOLUTE AUTO 10.01 K/mm3 (1.96-9.15); NEUTROPHILS PERCENT AUTO 90 % (41-73); Platelet Count 309 K/mm3 (150-400); RDW Standard Deviation 59.3 fL (35.1-46.3); Red Blood Cell Count 3.09 M/mm3 (3.80-5.20); White Blood Cell Count 11.18 K/mm3 (4.00-11.30)
--- NOTE | 2020-12-07 17:13 | NUR ---
SHIFT SUMMARY PT A&OX3, ABLE TO MAKE NEEDS KNOWN, FORGETFUL AT TIMES. PLEASANT AND COOPERATIVE TO CARE. NO C/O PAIN OR ANY DISCOMFORT THIS SHIFT. NO C/P. SOB, OR N&V. PT CONTINUES TO HAVE EPISODES OF BLOOD IN STOOL. PT RECEIVED 1 UNIT PRBC THIS SHIFT ORDERED, NO ASE NOTED, VSS. PT IN CHAIR AT THIS TIME. CALL LIGHT WITHIN REACH.
--- NOTE | 2020-12-08 04:43 | NUR ---
SHIFT SUMMARY- PT. A&O, PLEASANT. SITTING UP ON THE SIDE OF THE BED MOST OF THE NIGHT. COMPLAINTS OF BACK PAIN, MEDICATED WITH NORCO PER EMAR. REPORTED GOOD RELIEF. ALSO GIVEN SLEEP AID PER PT. REQUEST. NOTED SMALL AMOUNT OF BLOOD IN VOID LAST NIGHT. PT. HAD NO C/O DISCOMFORT. DENIED ANY OTHER NEEDS T/O THE SHIFT, VSS. CALL LIGHT WITHIN REACH AND SIDE RAILS UPX2. WILL CONT TO MONITOR.
[2020-12-08 07:30] LABS: BASOPHILS ABSOLUTE AUTO 0.04 K/mm3 (0.00-0.23); BASOPHILS PERCENT AUTO 0 % (0-2); EOSINOPHILS ABSOLUTE AUTO 0.04 K/mm3 (0.00-0.68); EOSINOPHILS PERCENT AUTO 0 % (0-6); Hematocrit 27.8 % (33.0-51.0); Hemoglobin 8.6 g/dL (11.5-16.0); IMMATURE GRAN PERCENT AUTO 5 % (0-1); LYMPHOCYTES ABSOLUTE AUTO 1.69 K/mm3 (0.84-5.20); LYMPHOCYTES PERCENT AUTO 17 % (21-46); MONOCYTES ABSOLUTE AUTO 1.07 K/mm3 (0.16-1.47); MONOCYTES PERCENT AUTO 10 % (4-13); Mean Corpuscular HGB 28.5 pg (26.0-34.0); Mean Corpuscular HGB Conc 30.9 g/dL (31.5-36.5); Mean Corpuscular Volume 92 fL (80-100); Mean Platelet Volume 9.4 fL (9.1-12.4); NEUTROPHILS ABSOLUTE AUTO 6.93 K/mm3 (1.96-9.15); NEUTROPHILS PERCENT AUTO 67 % (41-73); NRBC ABSOLUTE 0.02 K/mm3 (0.00-0.02); NRBC Auto 0.2 /100 WBC (0.0-0.2); Platelet Count 328 K/mm3 (150-400); RDW Coefficient Variation 18.4 % (11.7-14.2); RDW Standard Deviation 60.9 fL (35.1-46.3); Red Blood Cell Count 3.02 M/mm3 (3.80-5.20); White Blood Cell Count 10.27 K/mm3 (4.00-11.30)
[2020-12-08] MEDS ORDERED: MEXI200 PO (12:55)
[2020-12-08] MEDS ORDERED: METO50ER PO (13:01)
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
--- NOTE | 2020-12-08 17:49 | NUR ---
PT RESTING IN BED EATING DINNER. PT HAS DC ORDERS IN AND TELE MONITOR ALONG WITH IV HAS BEEN DC'D. 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 WILL REPORT OFF TO NIGHT RN RE PENDING DISCHARGE. PT MAKES NO C/O PAIN, SOB OR CHEST PAIN AT THIS TIME. PT IS A 1 PERSON ASSIST TO BSC. BED LEFT IN LOW POSITION AND CALL LIGHT WITHIN REACH. O2 TANK TO GO WITH PT AND BACK WITH [employer].
== END 2020-12-08 19:51 | disposition home health service (06) | DRG 280 ==
LOC: ER 11:46 → ICUW 14:32 → MEDS 14:32 → ICUE 14:32 → MEDS 12-02 12:58
PROVIDERS: Family Medicine; Hospitalist; Internal Medicine; Nurse Practitioner Acute Care; Physician Assistant; ADMIT Internal Medicine
PROC: 30233N1 Transfusion of Nonautologous Red Blood Cells into Peripheral Vein, Percutaneous Approach (ICD-10-PCS; principal; 2020-12-04)
PROC: 0DJD8ZZ Inspection of Lower Intestinal Tract, Via Natural or Artificial Opening Endoscopic (ICD-10-PCS; 2020-12-05)
DX: I21.4 Non-ST elevation (NSTEMI) myocardial infarction (principal); J96.02 Acute respiratory failure with hypercapnia; I50.31 Acute diastolic (congestive) heart failure; K72.00 Acute and subacute hepatic failure without coma; J18.9 Pneumonia, unspecified organism; K57.31 Diverticulosis of large intestine without perforation or abscess with bleeding; J44.1 Chronic obstructive pulmonary disease with (acute) exacerbation; I47.1 Supraventricular tachycardia; N17.9 Acute kidney failure, unspecified; I48.92 Unspecified atrial flutter; R65.10 Systemic inflammatory response syndrome (SIRS) of non-infectious origin without acute organ dysfunction; E87.4 Mixed disorder of acid-base balance; Z20.822 Contact with and (suspected) exposure to COVID-19; G89.29 Other chronic pain; I73.9 Peripheral vascular disease, unspecified; E11.9 Type 2 diabetes mellitus without complications; E66.01 Morbid (severe) obesity due to excess calories; I27.81 Cor pulmonale (chronic); E78.5 Hyperlipidemia, unspecified; K21.9 Gastro-esophageal reflux disease without esophagitis; I27.23 Pulmonary hypertension due to lung diseases and hypoxia; K62.1 Rectal polyp; K64.8 Other hemorrhoids; I25.10 Atherosclerotic heart disease of native coronary artery without angina pectoris; D50.9 Iron deficiency anemia, unspecified; I11.0 Hypertensive heart disease with heart failure; Z68.25 Body mass index [BMI] 25.0-25.9, adult; Z88.5 Allergy status to narcotic agent; Z88.1 Allergy status to other antibiotic agents; Z88.8 Allergy status to other drugs, medicaments and biological substances; Z79.82 Long term (current) use of aspirin; Z79.899 Other long term (current) drug therapy; Z99.81 Dependence on supplemental oxygen; I25.2 Old myocardial infarction; Z98.890 Other specified postprocedural states; Z86.010 Personal history of colon polyps; Z87.891 Personal history of nicotine dependence
CPT/HCPCS: 36415; 36430; 36600; 51702; 71045; 76705; 80047; 80048; 80053; 81001; 82274; 82550; 82553; 82803; 82947; 83605; 83690; 83735; 83880; 84100; 84145; 84484; 85014; 85018; 85025; 85027; 85610; 85730; 86850; 86900; 86901; 86920; 87040; 87086; 92526; 92610; 93005; 93010; 93306; 93975; 94640; 94660; 94760; 96365; 96366; 96375; 97110; 97116; 97161; 97165; 97530; 97535; 99285-25; A9270; J0456; J0696; J1644; J1650; J1750; J1940; J2001; J2370; J2704; J2920; J2930; J3475; J7040; J7050; J7120; J7512; P9016; U0004

== ENCOUNTER 2020-12-12 08:42 | Inpatient (IN) | payer OTHER ==
[~2020-12-12] VITALS: Ht 162.6 cm; Wt 70.0 kg
[~2020-12-12 08:42] MED LIST changes: +Aspir 8181 MG PO; +HYDR1TAB94 PO; +METO50ER PO; +MEXI200 PO; +POTA10T PO
[2020-12-12 10:11] LABS: BASOPHILS ABSOLUTE AUTO 0.04 K/mm3 (0.00-0.23); BASOPHILS PERCENT AUTO 0 % (0-2); EOSINOPHILS ABSOLUTE AUTO 0.01 K/mm3 (0.00-0.68); EOSINOPHILS PERCENT AUTO 0 % (0-6); Hematocrit 28.6 % (33.0-51.0); Hemoglobin 8.5 g/dL (11.5-16.0); IMMATURE GRAN ABSOLUTE AUTO 0.21 K/mm3 (0.00-0.10); IMMATURE GRAN PERCENT AUTO 1 % (0-1); LYMPHOCYTES ABSOLUTE AUTO 1.05 K/mm3 (0.84-5.20); LYMPHOCYTES PERCENT AUTO 7 % (21-46); MONOCYTES ABSOLUTE AUTO 1.23 K/mm3 (0.16-1.47); MONOCYTES PERCENT AUTO 8 % (4-13); Mean Corpuscular HGB 28.1 pg (26.0-34.0); Mean Corpuscular HGB Conc 29.7 g/dL (31.5-36.5); Mean Corpuscular Volume 94 fL (80-100); Mean Platelet Volume 9.1 fL (9.1-12.4); NEUTROPHILS ABSOLUTE AUTO 13.52 K/mm3 (1.96-9.15); NEUTROPHILS PERCENT AUTO 84 % (41-73); Platelet Count 298 K/mm3 (150-400); RDW Coefficient Variation 18.6 % (11.7-14.2); RDW Standard Deviation 63.3 fL (35.1-46.3); Red Blood Cell Count 3.03 M/mm3 (3.80-5.20); White Blood Cell Count 16.06 K/mm3 (4.00-11.30)
[2020-12-12 10:38] LABS: Alanine Aminotransfer (ALT/SGP 42 U/L (12-78); Albumin, Blood 2.7 g/dL (3.4-5.0); Albumin/Globulin Ratio 0.8 (0.8-1.8); Alk Phos 67 U/L (50-136); Anion Gap 2 mmol/L (6-16); Aspartate Aminotrans (AST/SGOT 25 U/L (12-37); Bilirubin, Total 0.3 mg/dL (0.1-1.0); Blood Urea Nitrogen 17 mg/dL (8-24); Bun/Creatinine Ratio 27.5 (12.0-20.0); CO2, Blood 41 mmol/L (21-32); Calcium, Blood 7.7 mg/dL (8.5-10.1); Chloride, Blood 96 mmol/L (98-108); Creatinine, Blood 0.62 mg/dL (0.40-1.00); Globulin, Blood 3.3 g/dL (2.2-4.0); Glomerular Filtration Rate >60 (60-); Glucose, Blood 136 mg/dL (70-99); Potassium, Blood 3.5 mmol/L (3.5-5.5); Sodium, Blood 139 mmol/L (136-145); Troponin I 0.049 ng/mL (0.000-0.040)
[2020-12-12 12:16] LABS: Source, Urine Catheter
[2020-12-12 12:21] LABS: Bicarbonate Venous 41.2 mmol/L (24.0-30.0); PCO2 Venous 88.1 mmHg (38-42); PO2 Venous 93.6 mmHg (38-42); pH Blood Venous 7.33 (7.34-7.37)
[2020-12-12 12:21] LABS: Appearance, Urine Clear (Clear); Bilirubin, Urine Neg (Neg); Blood, Urine Neg (Neg); Color, Urine Yellow (P-Yellow); Glucose Qualitative, Urine Neg (Neg); Ketones, Urine Neg (Neg); Leukocyte Esterase, Urine Neg (Neg); Nitrite, Urine Neg (Neg); Protein, Urine 2+ (Neg); Urobilinogen, Urine NORM (Normal)
[2020-12-12 12:48] LABS: Red Blood Cells, Urine 0-2 /hpf (0-2)
[2020-12-12 12:49] LABS: Bacteria Not Seen /hpf; Hyaline Casts Rare /lpf (0-2); Squamous Epithelial Cells Few /hpf (Few); Transitional Epithelial Cells Few /hpf (0-Rare)
[2020-12-12] MEDS ORDERED: FUROSEMIDE20 MG PO (13:29)
[2020-12-12] MEDS ORDERED: OMEP20ER PO (13:30)
[2020-12-12] MEDS ORDERED: HYDROCODONE-AC1 EAC7 PO (13:30)
[2020-12-12] MEDS ORDERED: POTA10T PO (13:30)
--- NOTE | 2020-12-12 19:57 | NUR ---
ADMIT NOTE RECIEVED REPORT FROM CARRIE SILVA IN ED. PT TO ROOM VIA GURSAM, 4 PERSON ASSIST WITH SLIDER SHEET TO BED. PT HAD INCONT EPISODE, BED BATH COMPLETED. PT ON BIPAP 28/12 AT 35% FIO2, SPO2 >94%, LS DIM. PT ROUSING TO VERBAL SIMTULI, QUICKLY FALLING BACK TO SLEEP. ORIENTED TO SELF, FAMILY, PLACE; UNABLE TO STATES DATE/TIME AND EVENT. PT DENIES PAIN, NAUSE AND DIZZINESS. PER REPORTS PT WAS FOUND DOWN IN STOOL AND URINE; REPORTS FEELING WEAK. PT SISTER TO BEDSIDE THIS EVENING, STATES THAT PT DAUGHTER LIVES WITH HER "AND ALL HER DAUGHTER DOES IS YELL AT HER AND DOES NOT HELP HER". PT REFUSING LOVENOX INJECTIONS, DR GARCIA NOTIIFED. PLANS FOR SLEEP STUDY TONIGHT, NOTIFIED RT. VSS. NO OTHER ACUTE CHANGES NOTED. REPORT GIVEN TO ONCMONIKA RN.
--- NOTE | 2020-12-13 04:27 | NUR ---
HOSPITALIST NOTIFIED PT C/O OF LOWER BACK,LEFT HIP & LEFT LEG PAIN WITH BURNING SENSATION THAT RADIATES THROUGH THE LEFT LEG. PT RATES HER PAIN 8/10, PAIN IS INTERMITTENT. XR OF THE LUMBAR/SPINE, LEFT HIP & PELVIS ORDERED AT THIS TIME.
[2020-12-13 05:57] LABS: Anion Gap 1 mmol/L (6-16); Blood Urea Nitrogen 10 mg/dL (8-24); Bun/Creatinine Ratio 17.8 (12.0-20.0); CO2, Blood 42 mmol/L (21-32); Calcium, Blood 7.9 mg/dL (8.5-10.1); Chloride, Blood 98 mmol/L (98-108); Creatinine, Blood 0.56 mg/dL (0.40-1.00); Glomerular Filtration Rate >60 (60-); Glucose, Blood 97 mg/dL (70-99); Potassium, Blood 3.1 mmol/L (3.5-5.5); Sodium, Blood 141 mmol/L (136-145)
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
--- NOTE | 2020-12-13 12:43 | NUR ---
AM NOTE ASSUMED CARE OF PATIENT AT APPROX 0700. P A&Ox3; FORGETFUL. COOPERATIVE WITH CARE. PT REFUSING LOVENOX AND XRAYS THIS AM, NOTIIFED DR LAUREN, NEW ORDERS TO DISCONTINUE XRAYS. CLARIFIED ORDERS FOR LAXIS, NEW ORDERS TO GIVEN 20MG DAILY. PT REPORTS PAIN IN LOWER BACK, STATES THAT IT IS CHRONIC PAIN, MEDICATED PER EMAR. PT UP WITH 1 PERSON ASSIST TO CHAIR. PT SOB WITH EXERTION, ON 7L O2 VIA NC THIS AM, TITRATED TO 6L O2 VIA NC. PT DESATURATES WITH ACTIVITY TO MID TO LOW 80%, RECOVERS QUICKLY. PT DENIES NASUEA, DIZZINESS AND LIGHTHEADEDNESS THIS AM. PT HAVING RUNS OF VTACH, NOTIIFED DR LAUREN, NO NEW ORDERS, CONTINUE TO MONITOR; PT ASYMPTOMATIC. OTHER VSS. NO OTHER ACUTE CHANGES. WILL CONTINUE TO MONITOR.
[2020-12-13] MEDS ORDERED: MEXI200 PO (13:06)
--- NOTE | 2020-12-13 17:49 | NUR ---
SHIFT SUMMARY NO ACUTE CHANGES NOTES DURING SHIFT. PT HAD SEVERAL EPISODES OF VTACH, RESTARTED MEXITIL PER DR ORDERS. PT O2 TITERATED TO 5L O2 VIA NC. OTHER VSS. NO OTHER ACUTE CHANGES NOTED DURING SHIFT, WILL CONTINUE TO MONITOR UNTIL REPORT GIVEN TO ONCOMING RN.
[2020-12-14 04:48] LABS: Anion Gap 0 mmol/L (6-16); Blood Urea Nitrogen 10 mg/dL (8-24); Bun/Creatinine Ratio 16.3 (12.0-20.0); CO2, Blood 43 mmol/L (21-32); Calcium, Blood 7.9 mg/dL (8.5-10.1); Chloride, Blood 98 mmol/L (98-108); Creatinine, Blood 0.61 mg/dL (0.40-1.00); Glomerular Filtration Rate >60 (60-); Glucose, Blood 146 mg/dL (70-99); Potassium, Blood 3.7 mmol/L (3.5-5.5); Sodium, Blood 141 mmol/L (136-145)
--- NOTE | 2020-12-14 18:32 | NUR ---
SHIFT NOTE PT HAS BEEN SLEEPING T/O MOST OF THE SHIFT TODAY PT REFUSED MUCH ACTIVITY WITH PHYSICAL THERAPY TODAY. NSR TODAY. PT ON 5L O2 TODAY HER BASELINE IS 5L. A/O X3, SLOW TO ANSWER QUESTIONS. PT WAS UP TO BEDSIDE CHAIR FOR ABOUT HALF OF THE DAY. POSSIBLE D/C TO [facility] TOMORROW
--- NOTE | 2020-12-15 05:32 | NUR ---
PATIENT ALERT AND ORIENTATED, ABLE TO USE CALL LIGHT APPROPRIATELY, FOLLOWS COMMANDS, ONE PERSON ASSIST,GAIT BELT WITH FRONT WHEEL WALKER, TOUCH ASSIST. PATIENT USED BIPAP [phone] THIS AM, PREVIOUS WAS PLACED ON A SLEEP STUDY AROUND 9:30PM LAST NIGHT UNTIL CLARIFICATION WAS MADE ON NEEDING TO BE ON BIPAP.
[2020-12-15 09:36] LABS: BASOPHILS ABSOLUTE AUTO 0.03 K/mm3 (0.00-0.23); BASOPHILS PERCENT AUTO 0 % (0-2); EOSINOPHILS ABSOLUTE AUTO 0.18 K/mm3 (0.00-0.68); EOSINOPHILS PERCENT AUTO 3 % (0-6); Hematocrit 28.8 % (33.0-51.0); Hemoglobin 8.3 g/dL (11.5-16.0); IMMATURE GRAN ABSOLUTE AUTO 0.07 K/mm3 (0.00-0.10); IMMATURE GRAN PERCENT AUTO 1 % (0-1); LYMPHOCYTES ABSOLUTE AUTO 0.94 K/mm3 (0.84-5.20); LYMPHOCYTES PERCENT AUTO 13 % (21-46); MONOCYTES ABSOLUTE AUTO 0.84 K/mm3 (0.16-1.47); MONOCYTES PERCENT AUTO 12 % (4-13); Mean Corpuscular HGB 28.6 pg (26.0-34.0); Mean Corpuscular HGB Conc 28.8 g/dL (31.5-36.5); Mean Platelet Volume 9.4 fL (9.1-12.4); NEUTROPHILS ABSOLUTE AUTO 4.97 K/mm3 (1.96-9.15); NEUTROPHILS PERCENT AUTO 71 % (41-73); Platelet Count 207 K/mm3 (150-400); RDW Coefficient Variation 18.5 % (11.7-14.2); RDW Standard Deviation 67.3 fL (35.1-46.3); White Blood Cell Count 7.03 K/mm3 (4.00-11.30)
[2020-12-15 09:40] LABS: Mean Corpuscular Volume 99 fL (80-100)
[2020-12-15 09:52] LABS: Anion Gap -1 mmol/L (6-16); Blood Urea Nitrogen 7 mg/dL (8-24); Bun/Creatinine Ratio 13.3 (12.0-20.0); CO2, Blood 41 mmol/L (21-32); Calcium, Blood 8.1 mg/dL (8.5-10.1); Chloride, Blood 100 mmol/L (98-108); Creatinine, Blood 0.53 mg/dL (0.40-1.00); Glomerular Filtration Rate >60 (60-); Glucose, Blood 184 mg/dL (70-99); Potassium, Blood 4.1 mmol/L (3.5-5.5); Sodium, Blood 140 mmol/L (136-145)
--- NOTE | 2020-12-15 17:59 | NUR ---
SHIFT NOTE PT HAS BEEN MADE MEDICAL NO TELE STATUS DURING THIS SHIFT. PT REMAINS A/O X3. PT REPORTS MILD IMPROVEMENT IN BREATHING, DENIES CP. PT DENIES ALL PAIN TODAY. IT WAS FOUND OUT TODAY THAT [facility] HAVE REFUSED TO ALLOW PT TO BE ADMITTED TO THEIR FACILTIES, CARE MANAGEMENT IS ATTEMPTING TO FIND PLACEMENT IN [facility] AT THIS TIME. PT TAKES MEDS WELL IN APPLESAUCE. TOLERATES O2 VIA N/C WELL. NADN. VSS.
--- NOTE | 2020-12-16 06:28 | NUR ---
SHIFT SUMMARY PT DID NOT SLEEP WELL LAST NIGHT, AWAKE MOST OF THE NIGHT. SHE RECEIVED A PRN ORDER FOR MELATONIN, BUT WAS READY TO WAKE UP AND DRINK COFFEE, AND "TRY TO SLEEP LATER TODAY." PT IS SATING ABOVE 90% ON 3LPM VIA NC. SHE PREFERRED HER NC, NOT TOLERATING HER BI-PAP FOR SLEEP. WILL CONTINUE TO MONITOR.
--- NOTE | 2020-12-16 06:43 | NUR ---
REFUSAL PT ONCE AGAIN REFUSED A SLEEP STUDY THI SHIFT DESPITE EDUCATION. PT REFUSED LAB DRAW THIS AM, PT STATES "I AM GOING HOME TODAY, LABS WILL NOT BE NECESSARY". LABS SHIFTED TO 0800 TO SEE OF PT WILL BE COMPLIANT AT THAT TIME.
[2020-12-16 09:16] LABS: BASOPHILS ABSOLUTE AUTO 0.03 K/mm3 (0.00-0.23); BASOPHILS PERCENT AUTO 1 % (0-2); EOSINOPHILS ABSOLUTE AUTO 0.19 K/mm3 (0.00-0.68); EOSINOPHILS PERCENT AUTO 3 % (0-6); Hematocrit 29.3 % (33.0-51.0); Hemoglobin 8.5 g/dL (11.5-16.0); IMMATURE GRAN ABSOLUTE AUTO 0.08 K/mm3 (0.00-0.10); IMMATURE GRAN PERCENT AUTO 1 % (0-1); LYMPHOCYTES ABSOLUTE AUTO 1.21 K/mm3 (0.84-5.20); LYMPHOCYTES PERCENT AUTO 20 % (21-46); MONOCYTES ABSOLUTE AUTO 0.76 K/mm3 (0.16-1.47); MONOCYTES PERCENT AUTO 12 % (4-13); Mean Corpuscular HGB 28.4 pg (26.0-34.0); Mean Corpuscular Volume 98 fL (80-100); Mean Platelet Volume 9.3 fL (9.1-12.4); NEUTROPHILS ABSOLUTE AUTO 3.85 K/mm3 (1.96-9.15); NEUTROPHILS PERCENT AUTO 63 % (41-73); Platelet Count 188 K/mm3 (150-400); RDW Coefficient Variation 18.2 % (11.7-14.2); RDW Standard Deviation 65.3 fL (35.1-46.3); Red Blood Cell Count 2.99 M/mm3 (3.80-5.20); White Blood Cell Count 6.12 K/mm3 (4.00-11.30)
[2020-12-16 09:50] LABS: Anion Gap 4 mmol/L (6-16); Blood Urea Nitrogen 8 mg/dL (8-24); Bun/Creatinine Ratio 13.3 (12.0-20.0); CO2, Blood 38 mmol/L (21-32); Calcium, Blood 8.5 mg/dL (8.5-10.1); Chloride, Blood 97 mmol/L (98-108); Glomerular Filtration Rate >60 (60-); Glucose, Blood 181 mg/dL (70-99); Sodium, Blood 139 mmol/L (136-145)
--- NOTE | 2020-12-16 13:27 | NUR ---
RECIEVED REPORT FROM KARIN SWITCHBOARD MECHANIC, AT 1150. PATIENT TO TRANSFER TO ROOM 338.
--- NOTE | 2020-12-16 16:11 | NUR ---
PATIENT HAS BEEN PLEASANT AND COOPERATIVE SINCE ADMITTING TO THIS UNIT THIS AFTERNOON. VITALS HAVE BEEN STABLE. NO COMPLAINTS OF PAIN OR DISCOMFORT. NO COMPLAINTS OF HEART PALPATATIONS. CALLS APPROPROPRIATELY FOR STAFF ASSIST. CALL LIGHT WITHIN REACH.
--- NOTE | 2020-12-16 17:46 | NUR ---
Pt sitting on edge of bed upon arrival. Pt's sister iSerra is at bedside. Pt denies pain at this time. She reports breathing has improved since being admitted to the hospital. Engaged in therapeutic discussion regarding advanced care planning. Gentle education on disease including trajectory of disease. Discussed the importance of planning for the future and developing multiple plans with her PCP as disease progresses. Pt and sister report concerns that Pt may be discharged before having caregivers set up at home. Pt reports needing assistance with bathing and struggles with dressing. Pt also reports inability to stand and cook for herself. Continued therapeutic listening. Pt reports plan to call her workers compensation administrator to discuss her needs. Pt and sister express appreciation of visit and report no other concerns. Palliative Care will remain available.
[2020-12-17 05:28] LABS: BASOPHILS ABSOLUTE AUTO 0.04 K/mm3 (0.00-0.23); BASOPHILS PERCENT AUTO 1 % (0-2); EOSINOPHILS ABSOLUTE AUTO 0.22 K/mm3 (0.00-0.68); EOSINOPHILS PERCENT AUTO 4 % (0-6); Hematocrit 27.8 % (33.0-51.0); Hemoglobin 8.3 g/dL (11.5-16.0); IMMATURE GRAN ABSOLUTE AUTO 0.08 K/mm3 (0.00-0.10); IMMATURE GRAN PERCENT AUTO 2 % (0-1); LYMPHOCYTES ABSOLUTE AUTO 1.18 K/mm3 (0.84-5.20); LYMPHOCYTES PERCENT AUTO 22 % (21-46); MONOCYTES PERCENT AUTO 13 % (4-13); Mean Corpuscular HGB 29.1 pg (26.0-34.0); Mean Corpuscular HGB Conc 29.9 g/dL (31.5-36.5); Mean Corpuscular Volume 98 fL (80-100); Mean Platelet Volume 9.7 fL (9.1-12.4); NEUTROPHILS ABSOLUTE AUTO 3.26 K/mm3 (1.96-9.15); NEUTROPHILS PERCENT AUTO 60 % (41-73); Platelet Count 186 K/mm3 (150-400); RDW Coefficient Variation 17.6 % (11.7-14.2); Red Blood Cell Count 2.85 M/mm3 (3.80-5.20); White Blood Cell Count 5.48 K/mm3 (4.00-11.30)
[2020-12-17 05:38] LABS: Anion Gap 0 mmol/L (6-16); Blood Urea Nitrogen 10 mg/dL (8-24); Bun/Creatinine Ratio 14.9 (12.0-20.0); CO2, Blood 40 mmol/L (21-32); Calcium, Blood 8.2 mg/dL (8.5-10.1); Chloride, Blood 98 mmol/L (98-108); Creatinine, Blood 0.67 mg/dL (0.40-1.00); Glomerular Filtration Rate >60 (60-); Glucose, Blood 97 mg/dL (70-99); Potassium, Blood 4.3 mmol/L (3.5-5.5); Sodium, Blood 138 mmol/L (136-145)
--- NOTE | 2020-12-17 06:45 | NUR ---
SHIFT SUMMARY PT IS A 70 Y/O FEMALE, ADMITTED FOR ACUTE ON CHRONIC RESPIRATORY FAILURE. SHE IS A&O X 3, 1PA TO THE BSC. SHE WAS MEDICATED ONCE DURING THE NIGHT FOR HIP AND BACK PAIN WITH PRN NORCO. NO C/O NAUSEA. PT IS ON 5L O2 VIA NC, HOME DOSE IS 3L. PT DESATS VERY EASILY GETTING UP TO BSC. VITAL SIGNS STABLE. NO ACUTE CHANGES IN PT CONDITION NOTED. WILL CONTINUE TO MONITOR AND TREAT PER EMAR UNTIL HAND OFF TO DAY SHIFT RN.
--- NOTE | 2020-12-17 17:07 | NUR ---
PT PLEASANT TODAY. SISTER IN TO VISIT TODAY. STATES THINKS WOODEN CANE LOST IN ICU RM 1. CALLED RN. NOT ABLE TO BE FOUND IN ICU. CHECKED OUR ROOM FIRST. NOT LOCATED. PT SITTING ON EDGE OF BED MUCH OF DAY. ENCOURAGED TO GET TO PUT FEET UP ON BED. DENIES. PT STATES NOT ABLE TO AMBULATE AT HOME TO BATHROOM. NEEDS HELP TO GET UP. NO HELP AVAIL. 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 SHE AGREED TO DISCUSS WITH MUSHROOM SPAWN MAKER TOMORROW. STATES DAUGHTER IN HOME SORT OF TAKES CARE OF EACH OTHER. HAS HEAD INJURY AND MICROWAVES FOOD. DOES NOT HELP MUCH. DISCUSSED WITH DR FIELD. SHE AWARE, ALSO THAT PT HAS SOME HOME CARE ALREADY. NO OTHER CONCERNS NOTED. BED IN LOW POSITION, CALL LITE IN REACH, CALLS APPROP
--- NOTE | 2020-12-18 07:41 | NUR ---
CORPORATE RELATIONS DIRECTOR SUMMARY PT A/O X3. MEDICATED FOR PAIN X2 TONIGHT. SLEPT WELL OVERNIGHT. AMBULATES WITH 1 ASSIST TO THE BSC. CONTINUES TO BE ON 3L O2 VIA NC MAINTAINING SATS AT 90% AND ABOVE. ABLE TO MAKE NEEDS KNOWN APPROPRIATELY. BED ALARM ON, CALL LIGHT WITHIHN THONG, VSS. REPORT GIVEN TO ONCOMING RN.
--- NOTE | 2020-12-18 17:46 | NUR ---
SHIFT SUMMARY PT AxOx4. PLEASANT AND COOPERATIVE WITH CARE. PT ON 3L O2 VIA NC, WHICH IS PATIENT'S REPORTED BASELINE. PT HAD SISTER, ADILIA, IN FOR VISIT TODAY, AND UPDATED ON PLAN OF CARE. CURRENT PLAN IS PENDING SNF PLACEMENT OR DC WITH HOME HEALTH. PT'S IV INFILTRATED TODAY. DR BERRIOS'Keith NO IV ACCESS. DENIES ANY PAIN. PT CURRENTLY RESTING IN BED WITH CALL LIGHT IN REACH. VITALS REVIEWED. PT DENIES ANY NEEDS AT THIS TIME.
--- NOTE | 2020-12-18 23:30 | NUR ---
1946 PT LYING IN BED. REPORTS PAIN IN NECK AND BACK. GAVE NORCO, WILL EVAL FOR EFFECT. REPORTS NAUSEA BUT DOES NOT WANT MEDS FOR IT AT THIS TIME. EDEMA IN ANKLES/FEET, OCCASSIONALLY WEEPING. DRESSING ON R MUHAMMAD C/D/I. HEEL PROTECTORS ON/MEPLEX. 3L O2 NC AT 93%. DENIES SOB.SCD'S.
--- NOTE | 2020-12-19 03:52 | NUR ---
12/18/20 2200 PT LYING IN BED, AWAKE, WATCHING TV. NO APPARENT SIGNS OF DISTRESS. CALL LIGHT IS IN REACH. 12/19/20 0000 PT LYING IN BED, EYES CLOSED, APPEARS TO BE RESTING. BREATHING IS EVEN, UNLABORED. NO APPARENT SIGNS OF DISTRESS. CALL LIGHT IS IN REACH.
--- NOTE | 2020-12-19 03:55 | NUR ---
0200 PT LYING IN BED, EYES CLOSED, APPEARS TO BE RESTING. WAKES EASILY TO VERBAL STIMULI. NO APPARENT SIGNS OF DISTRESS. CALL LIGHT IS IN REACH.
--- NOTE | 2020-12-19 03:56 | NUR ---
PT REPORTED NAUSEA, CALLED DR RODRIGUEZ AND GOT ZOFRAN ORDERED. GAVE PT ZOFRAN, WILL EVAL FOR EFFECT. NO OTHER APPARENT SIGNS OF DITRESS. CALL LIGHT IS IN REACH.
--- NOTE | 2020-12-19 04:35 | NUR ---
PT IS AAO X 4. ON 3L NC. REPORTS BACK AND NECK PAIN, GOT NORCO AT HS. REPORTS NAUSEA, GOT ZOFRAN ABOUT 0344. EDEMA IN ANKLES AND FEET OCC WEEPING, DRESSING ON R MUHAMMAD C/D/I. MEPLEX TO COCCYX FOR PROTECTION, ALSO ON BOTH HEELS. SCD'S.
--- NOTE | 2020-12-19 07:37 | NUR ---
PT LYING IN BED, AWAKE, NO APPARENT SIGNS OF DISTRESS. DENIES NEED FOR ANYTHING AT THIS TIME. CALL LIGHT IS IN REACH. NO OTHER CHANGES THIS SHIFT.
--- NOTE | 2020-12-19 14:03 | NUR ---
Met pt. siting up on her bed relaxesd pt reports doing fine, encouraged pt and prayed for her.
--- NOTE | 2020-12-19 15:10 | NUR ---
C/O SOB WITH EVEN MINIMAL EXERTION. O2 AT 3L (BASELINE) [facility] AND HOME WHEN DISCHARGED. LUNG SOUNDS DIMINISHED T/O. PLEASANT AND COOP WITH CARE.
--- NOTE | 2020-12-20 05:30 | NUR ---
SHIFT SUMMARY: PT IS ALERT AND ORIENTED. PT IS CALM AND COOPERATIVE WITH CARE. PT IS A STANDBY ASSIST TO THE BSC. PT CALLS APPROPRIATELY. PT REPORTS HEAD AND NECK PAIN, GAVE PRN NORCO, PT REPORTED RELIEF. PT REPORTS NAUSEA ON ONE OCCASION, GAVE PRN ZOFRAN, MEDICATION WAS EFFECTIVE. PT DENIES VOMITING AND SOB. O2 SATS >90% ON 3 L WHICH IS HER BASELINE. PT SLEPT INTERMITTENTLY THROUGHOUT THE NIGHT, GAVE PRN MELATONIN. NO ACUTE CHANGES OR COMPLICATIONS. WILL CONTINUE TO MONITOR.
[2020-12-20] MEDS ORDERED: ALBU90OI INH (09:09)
[2020-12-20] MEDS ORDERED: ATOR80 PO (09:10)
[2020-12-20] MEDS ORDERED: MELA3 PO (09:11)
--- NOTE | 2020-12-20 09:48 | NUR ---
Patient to be discharged today, patient aware of and agreeable with plan. [facility] transport to be here at 1200, patient made aware. Discharge instructions reviewed with patient, new medications discussed, questions answered. Patient denies needs or c/o at this time.
--- NOTE | 2020-12-20 13:47 | NUR ---
Pt. is in bed resting and is doing much better offered some prayers for the pt.
--- NOTE | 2020-12-20 13:56 | NUR ---
Patient discharged home. [facility] transporting patient to home. Discharge instructions and personal belongings with patient.
== END 2020-12-20 14:00 | disposition home health service (06) | DRG 189 ==
LOC: ER 08:42 → PCU 08:43 → MEDS 16:04 → PCU 16:08 → MEDS 12-16 12:38
PROVIDERS: Emergency Medicine; Family Medicine; ADMIT Hospitalist
DX: J96.21 Acute and chronic respiratory failure with hypoxia (principal); I21.A1 Myocardial infarction type 2; I50.32 Chronic diastolic (congestive) heart failure; E87.4 Mixed disorder of acid-base balance; I47.2 Ventricular tachycardia; G89.29 Other chronic pain; E66.01 Morbid (severe) obesity due to excess calories; I27.20 Pulmonary hypertension, unspecified; E78.5 Hyperlipidemia, unspecified; K21.9 Gastro-esophageal reflux disease without esophagitis; I73.9 Peripheral vascular disease, unspecified; I11.0 Hypertensive heart disease with heart failure; J96.22 Acute and chronic respiratory failure with hypercapnia; E87.6 Hypokalemia; D64.9 Anemia, unspecified; J44.9 Chronic obstructive pulmonary disease, unspecified; Z98.890 Other specified postprocedural states; Z87.891 Personal history of nicotine dependence; Z99.81 Dependence on supplemental oxygen; Z88.1 Allergy status to other antibiotic agents; Z88.5 Allergy status to narcotic agent; Z88.8 Allergy status to other drugs, medicaments and biological substances; Z79.82 Long term (current) use of aspirin; Z79.899 Other long term (current) drug therapy; W18.39XA Other fall on same level, initial encounter
CPT/HCPCS: 36415; 70450; 71045; 80048; 80053; 81001; 82803; 83605; 84145; 84484; 85025; 87040; 93005; 93010; 94640; 94660; 94760; 94762; 96374; 96375; 96376; 97110; 97116; 97162; 97166; 97530; 97535; 99285-25; A9270; G0378; J1650; J2543; J3010; P9612

== ENCOUNTER 2021-01-11 08:02 | Observation (INO) | payer OTHER ==
[~2021-01-11] VITALS: Ht 160 cm; Wt 70.5 kg
[~2021-01-11 08:02] MED LIST changes: +ATOR80 PO; +FUROSEMIDE20 MG PO; +HYDROCODONE-AC1 EAC7 PO; +MELA3 PO; +Ventolin5 MG/1 ML INH
[2021-01-11 10:13] LABS: BASOPHILS ABSOLUTE AUTO 0.06 K/mm3 (0.00-0.23); BASOPHILS PERCENT AUTO 1 % (0-2); EOSINOPHILS PERCENT AUTO 1 % (0-6); Hematocrit 32.7 % (33.0-51.0); Hemoglobin 9.7 g/dL (11.5-16.0); IMMATURE GRAN ABSOLUTE AUTO 0.07 K/mm3 (0.00-0.10); IMMATURE GRAN PERCENT AUTO 1 % (0-1); LYMPHOCYTES ABSOLUTE AUTO 1.53 K/mm3 (0.84-5.20); LYMPHOCYTES PERCENT AUTO 16 % (21-46); MONOCYTES ABSOLUTE AUTO 0.84 K/mm3 (0.16-1.47); MONOCYTES PERCENT AUTO 9 % (4-13); Mean Corpuscular HGB 28.9 pg (26.0-34.0); Mean Corpuscular HGB Conc 29.7 g/dL (31.5-36.5); Mean Corpuscular Volume 97 fL (80-100); NEUTROPHILS ABSOLUTE AUTO 6.71 K/mm3 (1.96-9.15); NEUTROPHILS PERCENT AUTO 72 % (41-73); Platelet Count 260 K/mm3 (150-400); RDW Coefficient Variation 14.9 % (11.7-14.2); RDW Standard Deviation 53.2 fL (35.1-46.3); Red Blood Cell Count 3.36 M/mm3 (3.80-5.20); White Blood Cell Count 9.31 K/mm3 (4.00-11.30)
[2021-01-11 10:29] LABS: Troponin I <0.015 ng/mL (0.000-0.040)
[2021-01-11 10:30] LABS: Alanine Aminotransfer (ALT/SGP 18 U/L (12-78); Albumin/Globulin Ratio 0.7 (0.8-1.8); Alk Phos 93 U/L (50-136); Anion Gap 2 mmol/L (6-16); Aspartate Aminotrans (AST/SGOT 15 U/L (12-37); Bilirubin, Total 0.2 mg/dL (0.1-1.0); Blood Urea Nitrogen 19 mg/dL (8-24); Bun/Creatinine Ratio 27.2 (12.0-20.0); CO2, Blood 39 mmol/L (21-32); Calcium, Blood 8.8 mg/dL (8.5-10.1); Chloride, Blood 99 mmol/L (98-108); Globulin, Blood 4.5 g/dL (2.2-4.0); Glomerular Filtration Rate >60 (60-); Glucose, Blood 116 mg/dL (70-99); Potassium, Blood 3.7 mmol/L (3.5-5.5); Sodium, Blood 140 mmol/L (136-145); Total Protein, Blood 7.5 g/dL (6.4-8.2)
[2021-01-11] MEDS ORDERED: IPRAT-ALBUT 0.5-3 ML INH (12:58)
[2021-01-11] MEDS ORDERED: MEXILETINE HCL PO (12:58)
[2021-01-11] MEDS ORDERED: Potassium Chlo20 ME1 PO (12:59)
[2021-01-11] MEDS ORDERED: FUROSEMIDE40 MG PO (13:00)
[2021-01-11] MEDS ORDERED: SENOKOT8.6 MG PO (13:01)
--- NOTE | 2021-01-11 17:52 | NUR ---
SHIFT SUMMARY PT ALERT AND ORIENTED. VS STABLE. O2 SATS HAVE REMAINED ABOVE 90% ON 4L NC. HR NSR. PT COMPLAINS OF PAIN TO HER LOWER BACK AND MEDICATED PER EMAR. PT PROVIDED BED BATH UPON ADMISSION. LACERATION TO LEFT BROW CLEANED. PT ABLE TO AMBULATE TO [facility] WITH 1 ASSIT GB AND FWW WITHOUT ANY DIZZINESS OR SYNCOPE. WILL CONTINUE TO MONITOR AND REPORT TO ONCOMING RN. CALL LIGHT IN REACH.
[2021-01-12 03:47] LABS: BASOPHILS ABSOLUTE AUTO 0.07 K/mm3 (0.00-0.23); BASOPHILS PERCENT AUTO 1 % (0-2); EOSINOPHILS ABSOLUTE AUTO 0.18 K/mm3 (0.00-0.68); EOSINOPHILS PERCENT AUTO 3 % (0-6); Hematocrit 31.3 % (33.0-51.0); Hemoglobin 9.2 g/dL (11.5-16.0); IMMATURE GRAN ABSOLUTE AUTO 0.03 K/mm3 (0.00-0.10); IMMATURE GRAN PERCENT AUTO 0 % (0-1); LYMPHOCYTES ABSOLUTE AUTO 1.89 K/mm3 (0.84-5.20); LYMPHOCYTES PERCENT AUTO 26 % (21-46); MONOCYTES ABSOLUTE AUTO 1.13 K/mm3 (0.16-1.47); MONOCYTES PERCENT AUTO 16 % (4-13); Mean Corpuscular HGB 28.7 pg (26.0-34.0); Mean Corpuscular HGB Conc 29.4 g/dL (31.5-36.5); Mean Corpuscular Volume 98 fL (80-100); NEUTROPHILS ABSOLUTE AUTO 3.93 K/mm3 (1.96-9.15); NEUTROPHILS PERCENT AUTO 54 % (41-73); Platelet Count 231 K/mm3 (150-400); RDW Coefficient Variation 14.6 % (11.7-14.2); RDW Standard Deviation 52.7 fL (35.1-46.3); Red Blood Cell Count 3.21 M/mm3 (3.80-5.20); White Blood Cell Count 7.23 K/mm3 (4.00-11.30)
[2021-01-12 04:13] LABS: Anion Gap 1 mmol/L (6-16); Blood Urea Nitrogen 14 mg/dL (8-24); Bun/Creatinine Ratio 22.6 (12.0-20.0); CO2, Blood 39 mmol/L (21-32); Calcium, Blood 8.7 mg/dL (8.5-10.1); Chloride, Blood 100 mmol/L (98-108); Creatinine, Blood 0.62 mg/dL (0.40-1.00); Glomerular Filtration Rate >60 (60-); Glucose, Blood 98 mg/dL (70-99); Potassium, Blood 3.7 mmol/L (3.5-5.5); Sodium, Blood 140 mmol/L (136-145)
--- NOTE | 2021-01-12 05:57 | NUR ---
ANGLE BENDER SUMMARY PT IS AXO X4 THIS SHIFT. PT HAS MAINTAINED NSR THIS SHIFT PER TELE. PT HAS REMAINED AFEBRILE THIS SHIFT W A PEAK TEMP OF 97.1. PT REPORTED FEELING SORE THIS MORNING AND WAS MEDICATED PER EMAR FOR PAIN. BP STABLE. WILL REPORT TO ONCOMING RN.
--- NOTE | 2021-01-12 18:16 | NUR ---
PT HAS BEEN PENDING D/C T/O THE DAY, PT STS THAT SHE IS NOT ABLE TO BE D/C HOME ALONE THERE IS NO ONE THERE TO HELP HER. PT STS THAT HER DAUGHTER LIVES WITH HER AND IS "HEAD INJURED" STS THAT DAUGHTER DOESN'T LEAVE, WHEN APPROACHED ABOUT D/C PT STS "SHE'S OUT RUNNING AROUND WITH HER BOYFRIEND" WHEN ASKED WHO CARES FOR HER WHEN DAUGHER IS GONE PT STS "SHE ONLY LEAVES WHEN I'M HERE" CARE MANAGEMENT WAS HERE TO SEE HER AND ADDRESSED D/C. PT HAS FEDERICO SAB T/O THE DAY, REFUSES TO USE BATHROOM ONLY WILL USE COMMODE. VAA. NADN. PT A/O X3 T/O THE DAY. PT'S SISTER WAS CONTACTED AT THE END OF THE SHIFT BY CHARGE NURSE LANNY, SISTER STS THAT SHE WILL GO TO PT'S HOUSE TO SEE IF DAUGHTER IS HOME SO THAT PT CAN RETURN HOME
[2021-01-13 04:18] LABS: BASOPHILS ABSOLUTE AUTO 0.05 K/mm3 (0.00-0.23); BASOPHILS PERCENT AUTO 1 % (0-2); EOSINOPHILS PERCENT AUTO 2 % (0-6); Hematocrit 31.7 % (33.0-51.0); Hemoglobin 9.3 g/dL (11.5-16.0); IMMATURE GRAN ABSOLUTE AUTO 0.04 K/mm3 (0.00-0.10); IMMATURE GRAN PERCENT AUTO 1 % (0-1); LYMPHOCYTES ABSOLUTE AUTO 1.83 K/mm3 (0.84-5.20); LYMPHOCYTES PERCENT AUTO 22 % (21-46); MONOCYTES ABSOLUTE AUTO 1.17 K/mm3 (0.16-1.47); MONOCYTES PERCENT AUTO 14 % (4-13); Mean Corpuscular HGB 28.2 pg (26.0-34.0); Mean Corpuscular HGB Conc 29.3 g/dL (31.5-36.5); Mean Corpuscular Volume 96 fL (80-100); Mean Platelet Volume 10.5 fL (9.1-12.4); NEUTROPHILS ABSOLUTE AUTO 5.11 K/mm3 (1.96-9.15); NEUTROPHILS PERCENT AUTO 61 % (41-73); Platelet Count 259 K/mm3 (150-400); RDW Coefficient Variation 14.8 % (11.7-14.2); RDW Standard Deviation 51.8 fL (35.1-46.3)
--- NOTE | 2021-01-13 05:34 | NUR ---
SHIFT SUMMARY NO ACUTE CHANGES THIS SHIFT. VSS EXCEPT INSTANCE OF HTN, MEDS PER EMAR. REMAINS AXO. IN SR. PT ON 4LNC. STITCHES/WOUND CLEANSED ON HEAD. OTHERWISE, PT RESTING OFF AND ON THIS SHIFT. AWAITING TO SEE OF PT HAS FAMILY AT HOME SO SHE CAN DC TODAY. WCTM.
--- NOTE | 2021-01-13 14:21 | NUR ---
PT EXPRESSED UNDERSTANDING OF DC TEACHING PT STS THAT SHE WILL TAKE MEDICATIONS THEY ARE ORDERED. PT D/C HOME WITH HOME HEALTH
== END 2021-01-13 11:36 | disposition home or self-care (01) ==
LOC: ER 08:02 → ERHOLD 08:03 → PCU 14:28
PROVIDERS: Emergency Medicine; Family Medicine; ADMIT Internal Medicine
DX: R55 Syncope and collapse (principal); I10 Essential (primary) hypertension; E11.51 Type 2 diabetes mellitus with diabetic peripheral angiopathy without gangrene; E78.5 Hyperlipidemia, unspecified; K21.9 Gastro-esophageal reflux disease without esophagitis; I25.10 Atherosclerotic heart disease of native coronary artery without angina pectoris; I25.2 Old myocardial infarction; M50.322 Other cervical disc degeneration at C5-C6 level; M47.812 Spondylosis without myelopathy or radiculopathy, cervical region; I47.2 Ventricular tachycardia; R60.9 Edema, unspecified; R91.8 Other nonspecific abnormal finding of lung field; I71.2 Thoracic aortic aneurysm, without rupture; J43.9 Emphysema, unspecified; S01.81XA Laceration without foreign body of other part of head, initial encounter; W05.0XXA Fall from non-moving wheelchair, initial encounter; Z91.14 Patient's other noncompliance with medication regimen; Z88.5 Allergy status to narcotic agent; Z88.8 Allergy status to other drugs, medicaments and biological substances; Z87.891 Personal history of nicotine dependence
CPT/HCPCS: 12013; 36415; 70450; 71045; 71260; 72125; 80048; 80053; 83735; 83880; 84484; 85025; 93005; 93010; 93246; 94640; 94760; 97110; 97162; 99285-25; A9270; G0378; Q9967

== ENCOUNTER 2021-02-02 16:47 | Inpatient (IN) | payer OTHER ==
[~2021-02-02] VITALS: Ht 162.6 cm; Wt 68.4 kg
[~2021-02-02 16:47] MED LIST changes: +FUROSEMIDE40 MG PO; +IPRAT-ALBUT 0.5-3 ML INH; +MEXILETINE HCL PO; +Potassium Chlo20 ME1 PO; +SENOKOT8.6 MG PO
[2021-02-02 17:10] LABS: Base Excess Venous 0.3 mmol/L; Bicarbonate Venous 24.2 mmol/L (24.0-30.0); PCO2 Venous 47 mmHg (38-42); PO2 Venous 102 mmHg (38-42); pH Blood Venous 7.36 (7.34-7.37)
[2021-02-02 17:54] LABS: Hematocrit 40.4 % (33.0-51.0); Hemoglobin 12.6 g/dL (11.5-16.0); Mean Corpuscular HGB Conc 31.2 g/dL (31.5-36.5); Mean Corpuscular Volume 90 fL (80-100); Mean Platelet Volume 10.7 fL (9.1-12.4); NRBC ABSOLUTE 0.02 K/mm3 (0.00-0.02); NRBC Auto 0.1 /100 WBC (0.0-0.2); Platelet Count 213 K/mm3 (150-400); RDW Coefficient Variation 14.8 % (11.7-14.2); RDW Standard Deviation 48.5 fL (35.1-46.3); White Blood Cell Count 16.84 K/mm3 (4.00-11.30)
[2021-02-02 18:18] LABS: BAND PERCENT MAN 28 % (0-8); BASOPHILS PERCENT MAN 0 % (0-2); EOSINOPHILS PERCENT MAN 0 % (0-6); LYMPHOCYTES ABSOLUTE MAN 0.33 K/mm3 (0.84-5.20); LYMPHOCYTES PERCENT MAN 2 % (21-46); METAMYELOCYTE PERCENT MAN 3 % (0-0); MONOCYTES PERCENT MAN 3 % (4-13); NEUTROPHILS ABSOLUTE MAN 15.49 K/mm3 (1.96-9.15); SEG NEUTROPHILS PERCENT MAN 64 % (41-73); TOTAL CELLS COUNTED 100
[2021-02-02 18:22] LABS: Albumin, Blood 3.1 g/dL (3.4-5.0); Albumin/Globulin Ratio 0.6 (0.8-1.8); Bilirubin, Total 0.8 mg/dL (0.1-1.0); Bun/Creatinine Ratio 21.3 (12.0-20.0); Calcium, Blood 7.7 mg/dL (8.5-10.1); Creatinine, Blood 2.44 mg/dL (0.40-1.00); Globulin, Blood 4.8 g/dL (2.2-4.0); Total Protein, Blood 7.9 g/dL (6.4-8.2)
[2021-02-02 18:24] LABS: Troponin I 1.46 ng/mL (0.000-0.040)
[2021-02-02] MEDS ORDERED: COLACE100 MG PO (19:54)
[2021-02-02] MEDS ORDERED: DOCUZEN 8.6-501 EACH PO (19:54)
[2021-02-02 22:59] LABS: International Normalized Ratio 1.34; Prothrombin Time Results 14.2 Sec (9.7-11.5)
[2021-02-02 23:07] LABS: Magnesium, Blood 1.7 mg/dL (1.6-2.4); Troponin I 1.71 ng/mL (0.000-0.040)
[2021-02-03 08:31] LABS: Hematocrit 40.3 % (33.0-51.0); Hemoglobin 12.1 g/dL (11.5-16.0); Mean Corpuscular HGB 27.9 pg (26.0-34.0); Mean Corpuscular Volume 93 fL (80-100); Mean Platelet Volume 10.9 fL (9.1-12.4); NRBC ABSOLUTE 0.08 K/mm3 (0.00-0.02); NRBC Auto 0.4 /100 WBC (0.0-0.2); Platelet Count 231 K/mm3 (150-400); RDW Coefficient Variation 14.9 % (11.7-14.2); RDW Standard Deviation 51.4 fL (35.1-46.3); Red Blood Cell Count 4.33 M/mm3 (3.80-5.20); White Blood Cell Count 21.83 K/mm3 (4.00-11.30)
[2021-02-03 08:57] LABS: BAND PERCENT MAN 23 % (0-8); BASOPHILS PERCENT MAN 0 % (0-2); EOSINOPHILS PERCENT MAN 0 % (0-6); LYMPHOCYTES PERCENT MAN 6 % (21-46); MONOCYTES PERCENT MAN 1 % (4-13); SEG NEUTROPHILS PERCENT MAN 70 % (41-73); TOTAL CELLS COUNTED 100
[2021-02-03 09:21] LABS: Albumin, Blood 2.6 g/dL (3.4-5.0); Albumin/Globulin Ratio 0.6 (0.8-1.8); Bilirubin, Total 0.6 mg/dL (0.1-1.0); Bun/Creatinine Ratio 21.6 (12.0-20.0); Calcium, Blood 6.3 mg/dL (8.5-10.1); Creatinine, Blood 3.15 mg/dL (0.40-1.00); Globulin, Blood 4.4 g/dL (2.2-4.0); Potassium, Blood 4.7 mmol/L (3.5-5.5); Troponin I 2.24 ng/mL (0.000-0.040)
[2021-02-03 11:50] LABS: Source, Urine Clean Catch
[2021-02-03 11:58] LABS: Appearance, Urine Clear (Clear); Bilirubin, Urine Neg (Neg); Blood, Urine 5+ (Neg); Color, Urine Yellow (P-Yellow); Glucose Qualitative, Urine Neg (Neg); Ketones, Urine Neg (Neg); Leukocyte Esterase, Urine Neg (Neg); Nitrite, Urine Neg (Neg); Protein, Urine 3+ (Neg); Specific Gravity, Urine 1.015 (1.003-1.022); Urobilinogen, Urine NORM (Normal)
[2021-02-03 12:05] LABS: Amorphous Mod (0-Heavy); Bacteria Rare /hpf
[2021-02-03 12:07] LABS: Red Blood Cells, Urine 0-2 /hpf (0-2); Squamous Epithelial Cells Rare /hpf (Few); Transitional Epithelial Cells Rare /hpf (0-Rare)
[2021-02-04 01:15] LABS: PCO2 Arterial 81.8 mmHg (35-45); pH Blood Arterial 7.12 (7.35-7.45)
[2021-02-04 01:16] LABS: PO2 Arterial 45.1 mmHg (80-100)
[2021-02-04 01:20] LABS: BASOPHILS ABSOLUTE AUTO 0.11 K/mm3 (0.00-0.23); BASOPHILS PERCENT AUTO 1 % (0-2); Hematocrit 41.4 % (33.0-51.0); Hemoglobin 12.2 g/dL (11.5-16.0); LYMPHOCYTES ABSOLUTE AUTO 0.71 K/mm3 (0.84-5.20); LYMPHOCYTES PERCENT AUTO 4 % (21-46); MONOCYTES ABSOLUTE AUTO 0.53 K/mm3 (0.16-1.47); MONOCYTES PERCENT AUTO 3 % (4-13); Mean Corpuscular HGB 27.9 pg (26.0-34.0); Mean Corpuscular HGB Conc 29.5 g/dL (31.5-36.5); Mean Corpuscular Volume 95 fL (80-100); Mean Platelet Volume 10.5 fL (9.1-12.4); NRBC ABSOLUTE 0.09 K/mm3 (0.00-0.02); NRBC Auto 0.5 /100 WBC (0.0-0.2); Platelet Count 195 K/mm3 (150-400); RDW Coefficient Variation 15.1 % (11.7-14.2); RDW Standard Deviation 53.2 fL (35.1-46.3); Red Blood Cell Count 4.38 M/mm3 (3.80-5.20); White Blood Cell Count 19.06 K/mm3 (4.00-11.30)
[2021-02-04 01:22] LABS: EOSINOPHILS ABSOLUTE AUTO 0.12 K/mm3 (0.00-0.68); EOSINOPHILS PERCENT AUTO 1 % (0-6); IMMATURE GRAN ABSOLUTE AUTO 1.31 K/mm3 (0.00-0.10); IMMATURE GRAN PERCENT AUTO 7 % (0-1); NEUTROPHILS ABSOLUTE AUTO 16.28 K/mm3 (1.96-9.15); NEUTROPHILS PERCENT AUTO 85 % (41-73)
[2021-02-04 01:41] LABS: BAND PERCENT MAN 21 % (0-8); BASOPHILS PERCENT MAN 0 % (0-2); EOSINOPHILS PERCENT MAN 0 % (0-6); LYMPHOCYTES ABSOLUTE MAN 0.95 K/mm3 (0.84-5.20); LYMPHOCYTES PERCENT MAN 5 % (21-46); METAMYELOCYTE ABSOLUTE MAN 0.57 K/mm3 (0.00-0.00); METAMYELOCYTE PERCENT MAN 3 % (0-0); MONOCYTES ABSOLUTE MAN 0.38 K/mm3 (0.16-1.47); MONOCYTES PERCENT MAN 2 % (4-13); NEUTROPHILS ABSOLUTE MAN 17.15 K/mm3 (1.96-9.15); SEG NEUTROPHILS PERCENT MAN 69 % (41-73); TOTAL CELLS COUNTED 100
[2021-02-04 01:53] LABS: C-REACTIVE PROTEIN, EXT RANGE 16.7 mg/dL (0.000-0.300); Magnesium, Blood 2.3 mg/dL (1.6-2.4); Thyroid Stimulating Hormone 0.374 uIU/mL (0.360-4.800)
[2021-02-04 02:11] LABS: Albumin, Blood 2.3 g/dL (3.4-5.0); Albumin/Globulin Ratio 0.5 (0.8-1.8); Bilirubin, Total 0.7 mg/dL (0.1-1.0); Bun/Creatinine Ratio 20.3 (12.0-20.0); Calcium, Blood 6.1 mg/dL (8.5-10.1); Creatinine, Blood 4.04 mg/dL (0.40-1.00); Globulin, Blood 4.3 g/dL (2.2-4.0); Potassium, Blood 5.1 mmol/L (3.5-5.5); Total Protein, Blood 6.6 g/dL (6.4-8.2); Troponin I 1.85 ng/mL (0.000-0.040)
[2021-02-04 04:37] LABS: PCO2 Arterial 73.3 mmHg (35-45); pH Blood Arterial 7.15 (7.35-7.45)
[2021-02-04 04:38] LABS: PO2 Arterial 79.9 mmHg (80-100)
--- NOTE | 2021-02-04 14:31 | NUR ---
Spoke with Pt's sister Sierra and provided update on Pt's condition. Recieved contact information for Pt's daughter Demetria Hu who is listed as MPOA on Pt's Advanced Directive. Ryan's number is [phone]. Called and spoke with Demetria. Provided update on Pt's condition and reviewed plan of care. Demetria reports being unaware of Pt being in the hospital and is tearful. Discussed current code status and educated on life sustaining treatment including risk factors, implications of CPR and Intubation. Demetria is requesting Pt to remain a full code. Demetria also request Pt's granddaughter Alicia be contacted if Demetria can not be reached. Alicia's phone number is [phone]. Answered questions and offered therapeutic listening. Demetria expresses appreciation of call and reports no other concerns at this time. Called admitting and updated contact information. Palliative Care will remain available.
--- NOTE | 2021-02-04 18:45 | NUR ---
Patient arrived via gurney and a four person slide transfer. She has numerous bruises thoughout her body, She has leathery skin from knees down. She arrived on BIPAP10/80% and increased to 100% just a little bit ago. She has R groin CL dressing intact and site WNL and is infuisng Levophed at 3 mcg/hr and just increased to 4 mcg/hr for MAP 55, she elaine has Heaprin infusing at 7.7 unit/kg/hr. Shortly ago went into SVT rate [address] Sparks and he ordered metoprolol and santy wait vagaled her with Ice to back of neck down to a rate of 80 SR. Giving report to Marco SILVA whom will assume care.
--- NOTE | 2021-02-04 19:34 | NUR ---
ASSUMED CARE. REPORT RECIEVED FROM MEGHANN SILVA. PT IN BED, ON BIPAP, SETTINGS: 02/03, RATE 16, FI02 100%. PT HAS RIGHT FEMORAL CENTRAL LINE INPLACE, PUMP SETTINGS: HEPARIN 7.5 UNITS/KG/HR, LEVOPHED 4 MCG/MIN. IV IN PLACE ON LEFT HAND. SAMANO CATHETER IN PLACE, DRAINING SCANT AMOUNT OF CLEAR YELLOW URINE. NO ACUTE NEEDS NOTED AT THIS TIME, WILL CONTINUE TO MONITOR.
[2021-02-05 00:53] LABS: Stool Occult Bld Immuno 1 Negative (NEGATIVE)
[2021-02-05 03:41] LABS: BASOPHILS ABSOLUTE AUTO 0.09 K/mm3 (0.00-0.23); BASOPHILS PERCENT AUTO 1 % (0-2); Hematocrit 32.9 % (33.0-51.0); Hemoglobin 10.1 g/dL (11.5-16.0); LYMPHOCYTES ABSOLUTE AUTO 0.59 K/mm3 (0.84-5.20); LYMPHOCYTES PERCENT AUTO 3 % (21-46); MONOCYTES PERCENT AUTO 3 % (4-13); Mean Corpuscular HGB 28.1 pg (26.0-34.0); Mean Corpuscular HGB Conc 30.7 g/dL (31.5-36.5); Mean Corpuscular Volume 92 fL (80-100); Mean Platelet Volume 10.8 fL (9.1-12.4); NRBC ABSOLUTE 0.05 K/mm3 (0.00-0.02); NRBC Auto 0.3 /100 WBC (0.0-0.2); Platelet Count 123 K/mm3 (150-400); RDW Coefficient Variation 15.5 % (11.7-14.2); Red Blood Cell Count 3.59 M/mm3 (3.80-5.20); White Blood Cell Count 17.46 K/mm3 (4.00-11.30)
[2021-02-05 03:48] LABS: EOSINOPHILS ABSOLUTE AUTO 0.02 K/mm3 (0.00-0.68); EOSINOPHILS PERCENT AUTO 0 % (0-6); IMMATURE GRAN ABSOLUTE AUTO 0.48 K/mm3 (0.00-0.10); IMMATURE GRAN PERCENT AUTO 3 % (0-1); NEUTROPHILS ABSOLUTE AUTO 15.78 K/mm3 (1.96-9.15); NEUTROPHILS PERCENT AUTO 90 % (41-73)
[2021-02-05 04:18] LABS: Albumin/Globulin Ratio 0.5 (0.8-1.8); Bilirubin, Direct 0.3 mg/dL (0.0-0.3); Bilirubin, Indirect 0.3 mg/dL (0.1-0.7); Bilirubin, Total 0.6 mg/dL (0.1-1.0); Bun/Creatinine Ratio 18.2 (12.0-20.0); C-REACTIVE PROTEIN, EXT RANGE 13.5 mg/dL (0.000-0.300); Calcium, Blood 6.1 mg/dL (8.5-10.1); Creatinine, Blood 5.39 mg/dL (0.40-1.00); Globulin, Blood 3.9 g/dL (2.2-4.0); Magnesium, Blood 1.9 mg/dL (1.6-2.4); Phosphorus, Blood 6.8 mg/dL (2.5-4.9); Potassium, Blood 3.9 mmol/L (3.5-5.5); Total Protein, Blood 5.9 g/dL (6.4-8.2)
[2021-02-05 04:24] LABS: Troponin I 0.745 ng/mL (0.000-0.040)
--- NOTE | 2021-02-05 06:53 | NUR ---
Shift summary. Pt continues on Bipap, settings: 04/03, 90% Fi02. Right femoral central line in place, IV pump settings: levophed 1 mcg/min, heparin 6.5 units/kg/hr, NS 75 ml/hr. IV access in r/hand. Hooks catheter in place, scant output noted during shift, 24 hr urine collection started. See shift assessment for details. Report given to Vivek SILVA.
--- NOTE | 2021-02-05 10:48 | NUR ---
Received report from Raul SILVA. Patient on BIPAP 03/24 and 70%. She moans out and flails arms about tim 30 to 1 minute and starts and flails arm when touching her. She opens eye breifly but does not communicate verbally or follow directions. She has quad lumen right groin CL and is infusing Heparin just decreased to 5.5 units/kg/hr, Levophed at 4 mcg/hr, NS at 75 ml/hr. She has 16Fr hardy draining to gravity. She went into SVT 190 try using vagal with ic as yesterday and ended up giving 5 mg Metoprolol x2. The about 30 minutes ago 150-170 and came out on her own aboy 10 minutes. Andrea Snowdenlps by and will contact family for update.
--- NOTE | 2021-02-05 11:08 | NUR ---
Spoke with Primary RN Vivek earlier this AM and discussed case. Pt O2 requirements have increase with Pt minimally responsive. Pt having runs of SVT. Called and spoke with Pt's daughter Demetria (MPOA). Provided update and engaged in therapeutic conversation regarding goals of care. Answered questions and validated concerns. Demetria is still wanting everything done. She reports plan to discuss with other family members and will call back. Palliative Care will remain available for continued therapeutic and supportive visits.
--- NOTE | 2021-02-05 11:45 | NUR ---
Pal Care FAMILY CONTACT - t/c to moiraDemetria Hu [phone] to update on ICU status, hypotention, tx with pressors. Requested family visit to address and define goals of care. Demetria states she is not in the area and cannot come. Requested she review with family and consider comfort care at this time. Demetria states she will call her dad and get back to us. Demetria states that "she doesn't want to give up on her too soon". Informed re: minimal responsivness and likey hypoxic brain injury that may be new baseline. Demetria verbalized understanding. Support offered.
--- NOTE | 2021-02-05 13:56 | NUR ---
T/c received from pt's sister, Lacey, who had just learned from her sister Sierra, that pt was in the hospital. I requested that she call Brooke pizarro for complete updates and for support. Lacey is aware from her conversation with Sierra that pt's prognosis is guarded/poor.
--- NOTE | 2021-02-05 16:38 | NUR ---
Visit made to pt's bedside to speak with kingston, Demetria, who arrived from [place] to visit at our request. Pt is bipap and pressor dependent at this time. She is unresponsive to staff. Kingston feels like she is minimally responsive to her but I did not witness this. Pt is moaning and making some muffled noises in bipap mask but I am unable to determine that she is forming any words. Review of pt status, concerns and challenges done with kingston in person as we had also done over the phone when I spoke with her. Kingston would like to "give her mom and chance" to recover. She expressed guilt at leaving her mom in the care of her sister who is head injured and she is currently unable to even locate her sister. Demetria is agreeable with DNR status and would like to review goals of care again tomorrow after studies of head done and results known. Support and listening offered. Encouraged her to spend time with her mom while here. I asked her to understand that what happened to her mom is not her fault, it is not strictly a covid infection. We reviewed her multiple comorbidities and recent low level of quality of life, sleeping in WC, unable to care for self, diffusely bruised with multiple skin tears and found down for undetermined length of time and complications from that alone with hypoxia. Brooke verbalizes understanding of her mom's poor prognosis. Will follow closely. Report provided to pt's RN and Dr. ANTONY obtained and entered for DNR status.
--- NOTE | 2021-02-05 19:59 | NUR ---
Patient daughter was in room for several hours and taled with paliative care and was able to change code status to DNR. I was able to reduced FiO2 to 40% and sat to upper 90%'s . She has had little change to neuro and still moans out and arms up in air. We took to head CT per Dr Sparks and she tolerated well and monitor on BIPAP. Stopped heparin at 1530 for PTT at [address] Greer will come in and place dialysis cath if PTT within limits. Hooked patient back up to monitors and gave report to Edgar SILVA. Dr Kay stated he wanted to do Dialysis tonite.
--- NOTE | 2021-02-05 20:30 | NUR ---
REPORT FROM MEGHANN, PT CONT ON BIPAP 20/10 45% W VOLUMES 700ML. PT IS GENERALLY UNRESPONSIVE EXCEPT MOANS FREQUENTLY AND W ANY STIMULATION. HEPARIN HAS BEEN ON SB AND PTT HAS BEEN DRAWN. WILL NOTIFY DR TROY Oates RESULT FOR POSSIBLE DIALYSIS CATH PLACEMENT. VSS, BUT PT IS FEBRILE 99.8. LEVOPHED HAS BEEN ON STANDBY SINCE NOC SHIFT YEST.
[2021-02-05 21:05] LABS: International Normalized Ratio 1.04; Prothrombin Time Results 11.2 Sec (9.7-11.5)
[2021-02-05 21:57] LABS: PCO2 Arterial 55.2 mmHg (35-45); PO2 Arterial 57.1 mmHg (80-100)
[2021-02-05 21:58] LABS: pH Blood Arterial 7.19 (7.35-7.45)
--- NOTE | 2021-02-05 22:10 | NUR ---
TRIALYSIS CATH PLACED TO L FEMORAL, BY DR SIMMONS WO COMPLICATION. DR CHAVEZ IN TO SEE PT AND ABG ORDERED. PT HAD COMPLETE LINEN CHANGE, PT HAD MECONIUM COLOR STOOL, UNFORMED. PHOTOS TAKEN OF BRUISES AND VARIOUS BLISTERS TO FOREARMS, THIGHS, AND FOOT. PT HAS VERY DRY, LEATHERY SKIN, NOTED BLEEDING FROM R FOOT WHICH SEEMS TO BE FROM DRY FISSURE. PT CONT TO MOAN AND MOVES MOUTH IN ATTEMPT TO REMOVE BIPAP MASK, BUT DOES NOT OPEN EYES OR RESPOND TO COMMAND. OCCAS JERKY MOVEMENTS OF UPPER ARMS.
--- NOTE | 2021-02-05 23:10 | NUR ---
PT TO HAVE DIALYSIS TONOC PER DR CHAVEZ. HEPARIN RESTARTED PER DR SIMMONS ORDER, VERIFIED DOSE W PHARMACIST. 24H URINE COLLECTION CONT ON ICE, SCANT AMT OUTPUT.
[2021-02-06 04:02] LABS: Hemoglobin 9.6 g/dL (11.5-16.0)
[2021-02-06 04:30] LABS: Uric Acid, Blood 8.3 mg/dL (2.6-6.0)
[2021-02-06 04:36] LABS: Albumin, Blood 2.2 g/dL (3.4-5.0); Albumin/Globulin Ratio 0.5 (0.8-1.8); Bilirubin, Direct 0.2 mg/dL (0.0-0.3); Bilirubin, Indirect 0.3 mg/dL (0.1-0.7); Bilirubin, Total 0.5 mg/dL (0.1-1.0); Bun/Creatinine Ratio 14.5 (12.0-20.0); Creatinine, Blood 3.72 mg/dL (0.40-1.00); Globulin, Blood 4.4 g/dL (2.2-4.0); Potassium, Blood 3.3 mmol/L (3.5-5.5); Total Protein, Blood 6.6 g/dL (6.4-8.2)
[2021-02-06 05:08] LABS: Calcium, Blood 9.1 mg/dL (8.5-10.1)
--- NOTE | 2021-02-06 06:00 | NUR ---
PT HAD DIALYSIS TONIGHT. HAS REMAINED OFF OF LEVOPHED >24H, NOW. VERY MINIMAL UO EVEN AFTER BUMEX. 24H URINE COLLECTION IN PROGRESS. CONT VERY OBTUNDED & MOANS INTERMITTANTLY, MED W FENTANYL, WHICH SEEMED TO HELP FOR SHORT TIME. PT W SVT TO 200 THIS AM, AND ALSO W RUNS VT. RESOLVED SPONTANEOUSLY. CONT ON BIPAP, SAME SETTINGS.
--- NOTE | 2021-02-06 09:45 | NUR ---
Pal Care note: Contacted by RN early this am with update on pt's worsening liver, renal, resp failure, NSTEMI, black tarry stools, neuro deficits and unresponsiveness that has not changed since admission. Pt had an emergency dialysis cath and tx dialysis tx during the night that she did not tolerate well. Pt appears to be in pain with furrowed brow, frowning, grimacing and moaning. I called Hannah Onofre, to update. She stated her mom would not have wanted the first dialysis tx and that she did not want us to continue. I again discussed comfort care with her and explained that we would continue to support her mom with medications to treat her air hunger, pain, anxiety if present. Kingston states she would like us to transition her to comfort care. She asked about O2 and I told her we would cont O2 administration for comfort. I asked her if she would like to come be with her mom and invited her to come prior to d/c of bipap. Hannah states it will take her a couple hours and she will come. RN, manager speech and updated on my conversation with Hannah. VO obtained for comfort care and orders entered.
--- NOTE | 2021-02-06 09:48 | NUR ---
COMFORT CARE ORDERS PLACED BY PALLATIVE CARE.
--- NOTE | 2021-02-06 13:59 | NUR ---
DAUGHTER ARRIVES AND IS AT BEDSIDE, DAUGHTER SPEAKS TO DR. MORELAND AND STATES "I WANT TO UX DESIGN MANAGER HER A CHANCE". AFTER DISCUSSION WITH DR. MORELAND COMFORT CARE ORDERS REMOVED AND PLACED ON FULL TREATMENT WITH STATUS REMAINING DNR. PALLATIVE CARE RN NOTIFIED, CALL PLACED TO DAUGHTER TO DISCUSS IF WANTING TO CONTINUE DIALYSIS. PALLATIVE CARE RN LEFT MESSAGE, WILL WAIT FOR DECISIONS.
--- NOTE | 2021-02-06 17:53 | NUR ---
PT DAUGHTER FOUND STANDING IN HALLOUT SIDE OF PT ROOM. DAUGHTER HAD PREVIOUSLY BEEN IN HOSPITAL AND MET WITH DOCTOR TO DISCUSS CARE AND TREATMENT. APPEARS FIDGITY AND UNABLE TO STAND STILL. TALKING WITH HER NOTED JUMPING FREQUENTLY FROM ONE THOUGHT TO ANOTHER WITH INABILITY TO FOLLOW A COMPLETE CONVERSATION OR DISCUSSION. APPEARS TO UNDERSTAND HOW ILL HER MOTHER IS AND HOW POOR HER PROGNOSIS IS. STATES DOES NOT WANT DIALYSIS BECAUSE HER MOTHER DIDN'T TOLERATE IT WELL. LUIS CARLOS RN FROM [facility] AND MYSELF WITH PT FOR DISCUSSION. CONTINUES TO STATE SHE FEELS GUILTY THAT SHE LEFT HER MOM WITH HER SISTER WHO HAS A TBI AND AND "STREET MAN" BEING BROUGHT INTO HOUSE. JUMPS FROM SUBJECT TO SUBJECT WITHOUT BEING ABLE TO FOCUS. STATES "MAYBE SHE NEEDS DIALYSIS". THEN LOOKS AT LUIS CARLOS AND YELLS TO STOP LOOKING AT HER LIKE SHE'S DUMB, TURNS AROUND AND STORMS FROM UNIT DOWN HALLWAY YELLING. DR. MORELAND UPDATED ON DECISION MAKING ABILITY OF DAUGHTER. ETHICS CONSULT ORDERED BY DR. MORELAND.
--- NOTE | 2021-02-06 18:02 | NUR ---
SHIFT SUMMARY; SEE ABOVE NOTE. DAUGHTER MADE COMFORT CARE THIS AM. PT ON COMFORT CARE FOR SEVERAL HOURS, DAUGHTER ARRIVES AT BEDSIDE. IN ROOM TO MEDICATE AND DAUGHTER STATES "DOES SHE NOT HAVE A DOCTOR"? APPEARS DEFENSIVE AND ANGRY. DAUGHTER TO CONSULT ROOM WITH DR. MORELAND TO DISCUSS PROGNOSIS. PT REMAINS NON RESPONSIVE ON BIPAP. MOANS TO STIMULI. CENTRAL LINE IN PLACE TO RIGHT GROWN, DIALYSIS CATHETER TO LEFT GROIN. BLACK LOOSE TARY STOOL TODAY, ATTENDS CHANGED WITH LUÍS CARE. ORAL CARE DURING SHIFT. REPOSITIONED THROUGHOUT SHIFT FOR COMFORT. DAUGHTER REQUESTS COMFORT CARE ORDERS BE REMOVED THIS AFTERNOON. DNR STATUS REMAINS. ETHICS CONSULT ORDERED FOR TOMORROW. WILL CONTINUE TO MONITOR AND TREAT UNTIL CHANGE OF SHIFT.
--- NOTE | 2021-02-06 18:10 | NUR ---
Called to room by RN, when moira unexpectedly returned to the hospital after she abruptly left earlier this afternoon. She had spoke with and reversed the comfort care plan of care that she had requested early this am. [place]. She appeared to be influence, jittery and emotionally labile between angry and very child like. She expressed guilt about her mom's condition and repeated all of her mom's current issues that had been reviewed with her by and myself earier today. She seemed distressed that she had never heard that her mom had liver failure before. We discussed the chronic nature of organ failure and the possible acceleration of her mom's multisystem failure from being on the floor at home for an undetermined abount of time. I attempted to determine if Demetria wanted us to proceed with dialysis for her mom. She indicated that she did not like me and I offered to have her mom's nurse continue the conversation or another palliative care nurse come. Demetria declined that offer and cont to ramble in a disorganized manner, asking questions and then answering them based on her conversations with her mom's providers. I did call pt's nurse over to help clarify findings of tests Kiah was asking about. She initially stated that she did not want her mom to have dialysis. She went back and forth a number of times on multiple issues. She could not stand still and looked frequently from pt's nurse to me. Then she stated, "stop looking at me like I am stupid. I don't like you!" and stormed out of the unit. Case discussed with charge nurse. RN reported to and VO obtained for ethics consult, which I entered. I updated sisterLacey [phone]. RN attempted to reach sisterSierra, and left message with her. I updated Andrea Jernigan on situation with decision maker and pts condition/goals of care concerns.
--- NOTE | 2021-02-07 05:56 | NUR ---
EXECUTIVE COMPENSATION ANALYST SUMMARY PT REMAINED UNRESPONSIVE THIS SHIFT ONLY OPENING HER EYES WHEN REPOSITIONED. PT HAS BEEN ON BIPAP 22/10 W 100% FIO2, PT HAS MAINTAINED O2 SATS >90% FOR MAJORITY OF THE SHIFT BUT DID DESATURATE DOWN TO 80% AT ONE POINT AND TOOK >20 MIN TO RECOVER. TELE HAS SHOWN SR 90'S W ONE EPSIODE OF SVT. PT HAD LOW BP'S THIS AM W A MAP OF 58 SO LEVOPHED WAS ORDERED HOWEVER BY THE TIME THE LEVOPHED ARRIVED THE PT'S BP HAD RAISED W A MAP >65. BP VERY LABILE THIS AM. PT GIVEN ROXANOL X1 THIS SHIFT FOR AIRHUNGER WHICH SEEMED TO HELP THE PT ALOT. <50ML OF URINE OUTPUT THIS SHIFT AND NBLADDER SCAN SHOING <100ML URINE. PT HAD ONE LOOSE GREEN BM THIS SHIFT. NO CALLS FROM FAMILY THIS SHIFT. HEPARIN GTT RUNNING UNINTERUPTED THIS SHIFT. WILL REPORT TO ONCOMING RN.
--- NOTE | 2021-02-07 07:34 | NUR ---
Ethics consult order received and processed. Case details, medical history and social complexities reviewed with palliative care, and attending provider. The principal i.e., Luz is grossly obtunded, lacks communicative and testamentary capacity, and is confirmed to be in a terminal condition. In the providers judgement, Luz is well beyond the threshold of being able to reasonably benefit from ongoing treatment, and is therefore appropriate for a hospice election. The provider relations specialist, hospitalist and palliative care nurse, have all concluded that continuous intervention at this point would be physiologically futile and therefore constitute an abuse to the dignity of the patient. Luz's sisters have testified that this aggressive and disproportionate approach is not in alignment with what Luz would have wanted. The daughter who is by advance directive the proxy decision maker, vacillates in her perspective. She is reported to show signs of inebriation and is therefore unreliable and disqualified. In light of these facts, hospital policy, and our crisis standards of care protocol, my recommendation is to honor the patient, and in accordance with the input of her siblings, make her comfort measures only. The daughter should be gently informed that despite our best efforts, it is no longer medically responsible to continue treating Luz in such an overly-ambitious manner, and per our policies and protocols, with the support of the sisters, we have transitioned her to comfort measures only. Dr Sparks will admister a sequential organ failure assessment so that the [facility] mortality index is well documented. Thank you for this consult. Andrea Jernigan ThD
--- NOTE | 2021-02-07 07:54 | NUR ---
Report from noc shift RN, that blood pressures were labile but not requiring levophed during last shift. At present, pt is not responsive except to uncomfortable stimuli; attempts to open eyes to check pupillary reaction met with grimacing and resistance. Head is arched back, mouth open , bipap mask on and settings 22/10 100% fio2 RR 24 and spo2 92%.Occasional spontaneous twitching of extremities noted. Blood pressure at this time noted 84/53. No urine in hardy catheter collection bag; small amount noted in the tubing which is clear light yellow. Noted order for ABG, which was communicated to Respiratory therapist.
[2021-02-07 08:12] LABS: PCO2 Arterial 54.4 mmHg (35-45); PO2 Arterial 66.9 mmHg (80-100)
[2021-02-07 08:17] LABS: pH Blood Arterial 7.24 (7.35-7.45)
--- NOTE | 2021-02-07 09:00 | NUR ---
Case conference with Andrea Jernigan, ethics chair and Dr Sparks. Please see ethics note also. VO for comfort care obtained and entered. mat inspector and bedside RN updated on results of ethics consult this am and new orders. I spoke to pt's granddau, Ashly, at length, to update her on Luz's status. Ashly would like to come see her grandma today and we made arrangements with mat inspector, RN and screeners to do that. It will take her approx 2 hrs to get here.
--- NOTE | 2021-02-07 11:01 | NUR ---
Granddaughter arrived with Cheryl PALLIATIVE care RN. Pt was repositioned and medicated just before they came into the room
--- NOTE | 2021-02-07 11:10 | NUR ---
Shantal Ashly arrived from [place]. I prepped her for visit to [facility]'s room and assisted her with donning enhanced resp isolation PPE. Ashly states she is fully vaccinated. Pt's bedside RN is in the room with pt already when Ashly entered the room. She will be given the option to stay if she would like when bipap is removed for comfort care.
--- NOTE | 2021-02-07 11:53 | NUR ---
Taiwo Leonardo at bedside. Bipap removed after roxinol and ativan administered for air hunger and pain/anxiety. They remain at bedside.
--- NOTE | 2021-02-07 13:36 | NUR ---
1212 With granddaughters at the bedside, pt passed as 1212 pm. Second RN verification completed by Kandice Moreno. Nursing surgical garment assembly supervisor notified, Tayor's home notified. Dr. Sparks notified when he rounded at 1245. Post mortem care completed at 1300.
--- NOTE | 2021-02-07 13:49 | NUR ---
Pal Care note: Sisters Lacey and Sierra notified of pt's . Lacey states [place]. This will be passed on to home contacted.
[2021-02-08 09:09] LABS: ANTIGLOMERULAR BM AB 2 units (0-20)
[2021-02-08 13:10] LABS: ANA DIRECT Negative (Negative); ANTIMYELOPEROXIDASE (MPO) ABS <9.0 U/mL (0.0-9.0); ANTIPROTEINASE 3 (PR-3) ABS <3.5 U/mL (0.0-3.5); ATYPICAL PANCA <1:20 titer (Neg:<1:20); CYTOPLASMIC (C-ANCA) <1:20 titer (Neg:<1:20); PERINUCLEAR (P-ANCA) <1:20 titer (Neg:<1:20)
[2021-02-10 08:10] LABS: A/G RATIO 0.8 (0.7-1.7); ALBUMIN 2.5 g/dL (2.9-4.4); ALPHA-1-GLOBULIN 0.5 g/dL (0.0-0.4); ALPHA-2-GLOBULIN 1.2 g/dL (0.4-1.0); BETA GLOBULIN 0.7 g/dL (0.7-1.3); GAMMA GLOBULIN 0.9 g/dL (0.4-1.8); GLOBULIN, TOTAL 3.3 g/dL (2.2-3.9); IMMUNOGLOBULIN A, QN, SERUM 394 mg/dL (64-422); IMMUNOGLOBULIN G, QN, SERUM 737 mg/dL (586-1602); IMMUNOGLOBULIN M, QN, SERUM 65 mg/dL (26-217); M-SPIKE Not Observed g/dL (Not Observed); PROTEIN, TOTAL, SERUM 5.8 g/dL (6.0-8.5)
== END 2021-02-07 13:51 | DRG 871 ==
LOC: ER 16:47 → ERHOLD 21:45 → PCU 21:45
PROVIDERS: Family Medicine; Internal Medicine; Internal Medicine Critical Care Medicine; Internal Medicine Nephrology; Pharmacist; Physician Assistant; Student in an Organized Health Care Education/Training Program; ADMIT Family Medicine
PROC: 06HM33Z Insertion of Infusion Device into Right Femoral Vein, Percutaneous Approach (ICD-10-PCS; principal; 2021-02-02)
PROC: 3E0333Z Introduction of Anti-inflammatory into Peripheral Vein, Percutaneous Approach (ICD-10-PCS; 2021-02-02)
PROC: 8E0ZXY6 Isolation (ICD-10-PCS; 2021-02-02)
PROC: 3E043XZ Introduction of Vasopressor into Central Vein, Percutaneous Approach (ICD-10-PCS; 2021-02-02)
PROC: 5A09557 Assistance with Respiratory Ventilation, Greater than 96 Consecutive Hours, Continuous Positive Airway Pressure (ICD-10-PCS; 2021-02-02)
PROC: 06HY33Z Insertion of Infusion Device into Lower Vein, Percutaneous Approach (ICD-10-PCS; 2021-02-05)
PROC: 5A1D70Z Performance of Urinary Filtration, Intermittent, Less than 6 Hours Per Day (ICD-10-PCS; 2021-02-05)
DX: A41.9 Sepsis, unspecified organism (principal); R65.21 Severe sepsis with septic shock; J12.82 Pneumonia due to coronavirus disease 2019; U07.1 COVID-19; J96.21 Acute and chronic respiratory failure with hypoxia; J96.22 Acute and chronic respiratory failure with hypercapnia; J15.9 Unspecified bacterial pneumonia; N17.0 Acute kidney failure with tubular necrosis; K72.00 Acute and subacute hepatic failure without coma; I21.A1 Myocardial infarction type 2; I63.9 Cerebral infarction, unspecified; I47.2 Ventricular tachycardia; I13.0 Hypertensive heart and chronic kidney disease with heart failure and stage 1 through stage 4 chronic kidney disease, or unspecified chronic kidney disease; E87.4 Mixed disorder of acid-base balance; G93.40 Encephalopathy, unspecified; M62.82 Rhabdomyolysis; Z66 Do not resuscitate; Z51.5 Encounter for palliative care; I25.10 Atherosclerotic heart disease of native coronary artery without angina pectoris; G89.29 Other chronic pain; J43.9 Emphysema, unspecified; I27.20 Pulmonary hypertension, unspecified; E11.22 Type 2 diabetes mellitus with diabetic chronic kidney disease; I50.9 Heart failure, unspecified; E86.9 Volume depletion, unspecified; E87.5 Hyperkalemia; E88.09 Other disorders of plasma-protein metabolism, not elsewhere classified; E83.51 Hypocalcemia; E11.51 Type 2 diabetes mellitus with diabetic peripheral angiopathy without gangrene; I27.81 Cor pulmonale (chronic); E66.01 Morbid (severe) obesity due to excess calories; E78.5 Hyperlipidemia, unspecified; R91.8 Other nonspecific abnormal finding of lung field; E87.6 Hypokalemia; D63.1 Anemia in chronic kidney disease; K21.9 Gastro-esophageal reflux disease without esophagitis; L89.891 Pressure ulcer of other site, stage 1; B95.7 Other staphylococcus as the cause of diseases classified elsewhere; N18.30 Chronic kidney disease, stage 3 unspecified; I48.91 Unspecified atrial fibrillation; Z88.5 Allergy status to narcotic agent; Z88.8 Allergy status to other drugs, medicaments and biological substances; Z91.14 Patient's other noncompliance with medication regimen; Z99.81 Dependence on supplemental oxygen; Z79.82 Long term (current) use of aspirin; Z79.899 Other long term (current) drug therapy; Z78.1 Physical restraint status; I25.2 Old myocardial infarction; Z85.41 Personal history of malignant neoplasm of cervix uteri; Z98.890 Other specified postprocedural states; Z87.891 Personal history of nicotine dependence; Z68.30 Body mass index [BMI] 30.0-30.9, adult
CPT/HCPCS: 36415; 36556; 36600; 51702; 70450; 71045; 76770; 80053; 81001; 82248; 82274; 82330; 82550; 82784; 82803; 83516; 83520; 83605; 83735; 83880; 84100; 84145; 84165; 84443; 84484; 84550; 85014; 85018; 85025; 85379; 85610; 85730; 86038; 86140; 86256; 86334; 87040; 87077; 87186; 87449; 93005; 93010; 94640; 94660; 94762; 96365; 96365-59; 96366-59; 96367; 96367-59; 96368; 96375-59; 96376-59; 99285-25; A9270; C1751; C1752; C9113; J0456; J0610; J0692; J0878; J1100; J1644; J1940; J2060; J2543; J3010; J3370; J3480; J7030; J7050; J7060; J7131